=== PATIENT | male | born 1960 | race Caucasian/White ===

== ENCOUNTER 2017-03-13 12:41 | Inpatient (IN) | payer MEDICARE, MEDICAID ==
[2017-03-13 13:51] LABS: #Basophils 0.1 thou/uL (0.0-0.2); #Eosinphils 0.3 thou/uL (0.0-0.7); #Lymphocytes 1.1 thou/uL (1.20-3.40); #Monocytes 1.2 thou/uL (0.11-0.59); %Basophils 0.4 % (0.0-1.0); %Eosinophils 2.6 % (0.0-10.0); %Lymphocytes 8.1 % (21.0-51.0); %Monocytes 8.6 % (0.0-10.0); %Neutrophils 80.3 % (42.0-75.0); Hemoglobin 13.1 g/dL (14.0-18.0); Mean Corpuscular HGB CONC 31.7 g/dL (32.0-36.0); Mean Corpuscular Hemoglobin 27.3 pg (27.0-31.0); Mean Corpuscular Volume 86.2 fl (80.0-94.0); Mean Platelet Volume 6.7 fL (7.4-10.4); Platelet Count 355 thou/uL (130-400); RBC Distribution Width 15.6 % (11.5-14.5); Red Blood Cell (RBC) Count 4.78 mill/uL (4.70-6.10); White Blood Cell (WBC) Count 13.7 thou/uL (4.8-10.8)
[2017-03-13 13:51] LABS: Bilirubin Negative (Negative); Blood, Urine Negative (Negative); Clarity CLEAR (Clear); Glucose, Urine (Dipstick) Negative (Negative); Leukocyte Negative (Negative); Nitrite Negative (Negative); Protein, Urine (Dipstick) Trace mg/dL (Neg-Trace); Specific Gravity, Urine 1.009 (1.002-1.036); Urobilinogen 0.2 mg/dL (0.2-1.0)
[2017-03-13 13:57] LABS: Hemoglobin A1c 6.8 % (4.0-6.0)
[2017-03-13 14:13] LABS: ALT (SGPT) 11 U/L (8-55); AST (SGOT) 13 U/L (5-34); Albumin 3.5 g/dL (3.5-5.0); Alkaline Phosphatase 63 U/L (40-150); Anion Gap 16 mmol/L (10-20); BUN (Urea Nitrogen) 55 mg/dL (8.4-25.7); Bilirubin, Total 0.4 mg/dL (0.2-1.2); Calc. Creatinine Clearance 0 mL/min (70-130); Calcium 9.7 mg/dL (7.8-10.44); Carbon Dioxide 34 mmol/L (22-29); Chloride 91 mmol/L (98-107); Estimated GFR-MDRD 39; Globulin 4.4 g/dL (2.4-3.5); Glucose 83 mg/dL (70-105); Potassium 3.7 mmol/L (3.5-5.1); Protein, Total 7.9 g/dL (6.0-8.3); Sodium 137 mmol/L (136-145)
--- NOTE | 2017-03-13 14:57 | HP ---
DATE OF ADMISSION: 03/13/2017 PRIMARY CARE PHYSICIAN: Miriam Villafana D.O. REASON FOR ADMISSION: Right lower extremity ulceration and cellulitis. HISTORY OF PRESENT ILLNESS: Mr. Leavitt is a 57-year-old male with past medical history of alcoholism, hypertension, diabetes, dyslipidemia, chronic systolic cardiac dysfunction who resides a [facility] home was sent over for worsening of left lower extremity ulceration. Hist ory is mainly obtained from the patient and supplemented by electronic medical records and discussion with admitting ER physician, Dr. Farah. According to Mr. Leavitt, the long-term staff has been noticing that he has worsening of small ulc ers in his right leg and that is the reason he was sent here. Otherwise, he denies any other recent illnesses. He denies any pain in the leg. He denies any discharge in the leg, but he cannot really look because of obesity. He denies any fever, chills, cough, shortness of breath, chest pain, nausea , vomiting, dysuria, frequency, urgency, hematochezia, melena, diarrhea or abdominal pain. PHYSICAL EXAMINATION: VITAL SIGNS: Upon presentation to the emergency room, he was somewhat hypertensive with blood pressu re of 183/93 but was otherwise hemodynamically stable. His temperature was 99 degrees. MUSCULOSKELETAL: On examination, he was found to have significantly large area of eschar on his rose on the right leg associated with small areas of ulcerations and diffuse cellulitis extending from hi s foot all the way up to his right knee. He also was found to have big eschar on his right heel. He also has significant edema to both legs and some evidence of erythema to his left foot as well. Giv en these findings, he was given IV antibiotics and is now being admitted with presumptive diagnosis o f cellulitis and significant wound infection of the lower leg either diabetic or vascular in nature. An ultrasound of the leg done in the emergency room is negative for any DVT in the right leg. Other lacy he has evidence of leukocytosis and is hemodynamically stable. His lactic acid is 1.8. PAST MEDICAL HISTORY: 1. History of chronic alcoholism. He is abstinent for last 3 years since he has been in the long-term. 2. History of cardiopulmonary arrest requiring CPR and intubation in 02/2014. 3. 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 4. History of chronic systolic cardiomyopathy with last EF of 40%-45% in 02/2014. 5. Hypertension. 6. Dyslipidemia. 7. Diabetes mellitus type 2. PAST SURGICAL HISTORY: Intubation and bronchoscopy in 02/2014. ALLERGIES: No known medication allergies. CURRENT MEDICATIONS: As per the long-term records. 1. Arginaid packet 1 packet once a day for wound healing. 2. Vitamin C daily. 3. Nexium tablet daily. 4. Tramadol as needed. 5. Lasix 40 mg b.i.d. 6. Glipizide 5 mg daily. 7. Aspirin 325 mg daily. 8. Mucinex tablet as needed. 9. Metformin 1000 mg b.i.d. 10. Extra strength Tylenol as needed. 11. Losartan 100 mg daily. 12. Fenofibric acid 145 mg daily. 13. Carvedilol 25 mg 2 times a day. 14. Claritin as needed. 15. Hydrochlorothiazide 25 mg daily. 16. Simvastatin 40 mg daily. 17. Famotidine 20 mg b.i.d. 18. Loperamide as needed. FAMILY HISTORY: Not obtainable correctly given the patient's difficulty to remember. Otherwise, he denies anyone in his family to have a heart attack or stroke. Code status, out of hospital DNR is in the chart. SOCIAL HISTORY: He currently resides at [facility] as a prominent resident. He has history of alcohol abuse and was homeless prior to his last admission in 2013. No history of drug or tobacc o abuse. REVIEW OF SYSTEMS: The following complete review of systems was negative, unless otherwise mentioned in the HPI or below: Constitutional: Weight loss or gain, ability to conduct usual activities. Skin: Rash, itching. Eyes: Double vision, pain. ENT/Mouth: Nose bleeding, neck stiffness, pain, tenderness. Cardiovascular: Palpitations, dyspnea on exertion, orthopnea. Respiratory: Shortness of breath, wheezing, cough, hemoptysis, fever or night sweats. Gastrointestinal: Poor appetite, abdominal pain, heartburn, nausea, vomiting, constipation, or diarr hea. Genitourinary: Urgency, frequency, dysuria, nocturia. Musculoskeletal: Pain, swelling. Neurologic/Psychiatric: Anxiety, depression. Allergy/Immunologic: Skin rash, bleeding tendency. It is negative except for those mentioned in the history and physical. LABORATORY DATA AND IMAGING DATA: On examination, CBC shows WBCs at 13.7 with 80% neutrophils, hemog lobin 13.1, hematocrit 41.2, and platelet count of 355. Serum chemistry: Chloride 91, bicarbonate 3 4, BUN 55, creatinine 1.81, hemoglobin A1c is 6.8, blood sugar 83, lactic acid normal at 1.8. Liver enzymes within normal limits. Urinalysis is unremarkable. X-ray of the leg and foot are pending at this time. PHYSICAL EXAMINATION: VITAL SIGNS: Most recent vital signs include blood pressure 173/92, pulse of 89, respirations 30, sa turating 94% on room air. GENERAL: No acute distress, awake, alert, and oriented x3. He appears well nourished and well kempt . Awake, alert, and oriented x3. HEENT: Mucous membrane is moist and pink. No oropharyngeal exudate or erythema. Head is normocepha lic, atraumatic. Pupils are equal and reactive to light and accommodation. Extraocular movements in tact. NECK: Supple without any lymphadenopathy, JVD or bruit. CHEST: Clear to auscultation without any wheezing, rales, or rhonchi. Rate and rhythm is regular wi thout any murmur, rubs or gallops. ABDOMEN: Soft, nontender, nondistended with positive bowel sounds. EXTREMITIES: His left lower extremity has erythema and pitting edema extending from his foot to his mid rose. His right lower extremity has diffuse erythema and edema extending from his foot to almost up to the right knee. He has diffuse area of big eschar measuring at least 10-15 cm on the right sh in. Also, surrounded by some small shallow ulcers throughout the right anterior leg. He also has es prem to his right heel. Otherwise no rashes or bruises. NEUROLOGIC: Examination is nonfocal. PSYCHIATRIC: Normal affect. SKIN: As above. IMPRESSION AND PLAN: 1. Right leg ulcer. Either it is diabetic kidney injury versus vascular. He will be started on IV antibiotics. He would need extensive debridement. We will consult Wound Care as well as General Nuzhat catalino for the same. We will obtain x-ray of his leg and his foot on the right side to rule out osteom yelitis. We will also obtain Dopplers on both legs to rule out vascular causes. He will be admitted to medical service at this time as he is hemodynamically stable. He will be treated for possible se psis along with IV fluids and IV antibiotics. Blood cultures have been sent and we will follow the r esults. Wound cultures have also been obtained in the ER and we will follow the results as well. 2. Uncontrolled hypertension. We will resume his home medications with beta blockers at this time. Avoid diuretics and ÁNGEL and ARB due to acute kidney insufficiency. Monitor and add p.r.n. antihyper tensives. 3. Acute kidney insufficiency. The patient's baseline creatinine seems to be within normal range. We will be resuscitate with IV fluids and monitor his renal function. Avoid any nephrotoxic medicati ons and iodine dyes. 4. Diabetes mellitus. This patient needs to be on insulin. At this time, it seems like he is only controlled with oral hypoglycemics. He will be treated with insulin sliding scale in the hospital an d we will add insulin short and long-acting at the time of discharge. At this time, I do not know if the patient will be n.p.o. in preparation for any surgical debridement, so we will hold off on oral hypoglycemics and long-acting insulins. 2. History of cardiac arrest. 3. CODE STATUS: DO NOT RESUSCITATE as mentioned in the out of hospital DNR form. 4. Dyslipidemia, resume his statin. 5. History of systolic cardiac dysfunction. He appears euvolemic at this time. 6. Deep venous thrombosis and gastrointestinal prophylaxis. 7. Add p.r.n. medication order and supportive care. DISPOSITION: The patient will be admitted to medical floor for nonhealing lower extremity cultures a nd rule out osteomyelitis with possible sepsis. Further management will depend upon his clinical cou rse. Estimated length of stay at this time is at least 2-3 midnights.
[2017-03-13] MEDS ORDERED: Piperacillin/Tazobactam 4.5 GM in Sodium Chloride 0.9% 100 ML IVPB SCH (15:00)
[2017-03-13] MEDS ORDERED: Vancomycin HCl 1.75 GM in Sodium Chloride 0.9% 500 ML IVPB SCH (15:00)
--- NOTE | 2017-03-13 15:29 | RAD ---
2 VIEWS RIGHT TIBIA AND FIBULA: Date: 03/13/17 HISTORY: Osteomyelitis and pain. FINDINGS: AP and lateral views of right tibia and fibula demonstrate no evidence of right tibial or fibular fra ctures, subluxations, or bony lesions. IMPRESSION: Normal 2 views right tibia and fibula. POS: [facility]
--- NOTE | 2017-03-13 15:29 | RAD ---
3 VIEWS RIGHT FOOT: Date: 03/13/17 HISTORY: Right foot pain. Wound which is foul-smelling. FINDINGS: AP, lateral, and oblique views of right foot obtained. FINDINGS: There is soft tissue swelling over the dorsal aspect of the right foot. No evidence of right foot fractures, subluxations, or bony lesions seen. IMPRESSION: Dorsal right foot swelling with no evidence of acute fractures or bony lesions. POS: [facility]
[2017-03-13] MEDS ORDERED: Calcium Carbonate 500 MG ChewTAB PO PRN (16:50)
[2017-03-13] MEDS ORDERED: Diabetic Tussin 200 MG/10 ML UDCUP PO PRN (16:50)
[2017-03-13] MEDS ORDERED: Nitroglycerin 0.4 MG TAB (25 Tab Bottle) SL PRN (16:50)
[2017-03-13] MEDS ORDERED: Senokot 8.6 MG TAB PO PRN (16:50)
[2017-03-13] MEDS ORDERED: Loratadine 10 MG TAB PO PRN (16:50)
[2017-03-13] MEDS ORDERED: VANCOMYCIN HCL IVPB SCH (16:50)
[2017-03-13] MEDS ORDERED: HumaLOG 300 UNITS/3 ML VIAL SC PRN (16:50)
[2017-03-13] MEDS ORDERED: cloNIDine 0.1 MG TAB PO PRN (16:50)
[2017-03-13] MEDS ORDERED: Benzonatate 100 MG CAP PO PRN (16:50)
[2017-03-13] MEDS ORDERED: Bisacodyl 5 MG TAB PO PRN (16:50)
[2017-03-13] MEDS ORDERED: traMADol HCl 50 MG TAB PO PRN (16:50)
[2017-03-13] MEDS ORDERED: Ondansetron HCl/PF 4 MG/2 ML Vial IVP PRN (16:50)
[2017-03-13] MEDS ORDERED: Lorazepam 1 MG TAB PO PRN (16:50)
[2017-03-13] MEDS ORDERED: Mag-Al 1200 mg/1200 mg/30 ML UDCUP PO PRN (16:50)
[2017-03-13] MEDS ORDERED: Dextrose 5% in Water 1,000 ML IV PRN (16:50)
[2017-03-13] MEDS ORDERED: Dextrose 50% Abboject 50 ML SYRINGE SLOW IVP PRN (16:50)
[2017-03-13] MEDS ORDERED: hydrALAZINE 20 MG/ML VIAL SLOW IVP PRN (16:50)
[2017-03-13] MEDS ORDERED: Acetaminophen 325 MG TAB PO PRN (16:50)
[2017-03-13] MEDS ORDERED: Piperacillin/Tazobactam 3.375 GM in Sodium Chloride 0.9% 100 ML IVPB SCH (18:00)
[2017-03-13] MEDS: Sodium Chloride 0.9% 1,000 ML IV SCH (18:43)
[2017-03-13] MEDS: Carvedilol 25 MG TAB PO SCH (18:45)
--- NOTE | 2017-03-13 20:26 | ULT ---
RIGHT LOWER EXTREMITY ARTERIAL VASCULAR DUPLEX WITH COLOR AND SPECTRAL DOPPLER IMAGING: History: 57-year-old male with vascular ulcer. FINDINGS: There is a minimally enlarged left lymph node in the right groin, nonspecific. Exam performed from groin to ankle. There is monophasic flow throughout the right lower extremity except for the profunda femoral artery where there was triphasic flow. Dorsalis pedis flow was not demonstrated. No evidence for significant focal abnormal high velocities. IMPRESSION: Essential monophasic flow throughout the right lower extremity arterial tree, evidence for generalize d peripheral vascular disease. No significant focal high velocity. Consider follow up abdominal and bilateral lower extremity CT angiogram for further assessment in thi s regard. Minimally enlarged nonspecific right groin lymph node. POS: [facility]
[2017-03-13] MEDS: Famotidine 20 MG TAB PO SCH (21:34)
[2017-03-13] MEDS: Simvastatin 40 MG TAB PO SCH (21:34)
[2017-03-13] MEDS: Piperacillin/Tazobactam 2.25 GM in Sodium Chloride 0.9% 100 ML IVPB SCH (21:35)
[2017-03-14] MEDS: Piperacillin/Tazobactam 2.25 GM in Sodium Chloride 0.9% 100 ML IVPB SCH ×4 (05:00→20:35)
[2017-03-14] MEDS: Sodium Chloride 0.9% 1,000 ML IV SCH ×2 (05:38→22:00)
[2017-03-14 06:25] LABS: #Eosinphils 0.2 thou/uL (0.0-0.7); #Neutrophils 11.3 thou/uL (1.40-6.50); %Eosinophils 1.7 % (0.0-10.0); %Lymphocytes 7.4 % (21.0-51.0); %Monocytes 7.1 % (0.0-10.0); %Neutrophils 83.8 % (42.0-75.0); Anion Gap 16 mmol/L (10-20); BUN (Urea Nitrogen) 49 mg/dL (8.4-25.7); Calc. Creatinine Clearance 83 mL/min (70-130); Calcium 9.6 mg/dL (7.8-10.44); Carbon Dioxide 29 mmol/L (22-29); Chloride 97 mmol/L (98-107); Estimated GFR-MDRD 49; Glucose 124 mg/dL (70-105); Hemoglobin 11.8 g/dL (14.0-18.0); Mean Corpuscular HGB CONC 31.3 g/dL (32.0-36.0); Mean Corpuscular Hemoglobin 27.1 pg (27.0-31.0); Mean Corpuscular Volume 86.5 fl (80.0-94.0); Mean Platelet Volume 7.9 fL (7.4-10.4); Platelet Count 334 thou/uL (130-400); Potassium 3.4 mmol/L (3.5-5.1); RBC Distribution Width 15.7 % (11.5-14.5); Red Blood Cell (RBC) Count 4.36 mill/uL (4.70-6.10); Sodium 139 mmol/L (136-145); White Blood Cell (WBC) Count 13.5 thou/uL (4.8-10.8)
[2017-03-14] MEDS: Enoxaparin Sodium 40 MG/0.4 ML SYRINGE SC SCH (07:35)
[2017-03-14] MEDS: Fenofibrate Nanocrystallized 145 MG TAB PO SCH (07:35)
[2017-03-14] MEDS: Famotidine 20 MG TAB PO SCH ×2 (07:35→20:35)
[2017-03-14] MEDS: Carvedilol 25 MG TAB PO SCH ×2 (07:36→16:51)
[2017-03-14] MEDS: Aspirin 325 mg Enteric Coated Tablet PO SCH (07:36)
[2017-03-14] MEDS ORDERED: Potassium Chloride 20 MEQ TAB PO SCH (08:00)
[2017-03-14 09:06] VITALS: BMI 40.6
--- NOTE | 2017-03-14 13:07 | PDOC.PN ---
- Subjective Encounter Start Date: 03/14/17 Encounter Start Time: 08:30 -: old records requested/rev Patient seen and examined. No new complaints. No overnight events - Objective MAR Reviewed: Yes Vital Signs & Weight: Vital Signs (12 hours) Temp Pulse Resp BP Pulse Ox 03/14/17 12:00 95 03/14/17 11:29 98.9 F 92 20 166/93 H 90 L 03/14/17 08:02 99.7 F H 94 18 131/72 90 L 03/14/17 08:00 99.7 F H 94 18 95 03/14/17 04:47 97.6 F 88 127/75 Weight Admit Weight 237 lb Weight 237 lb I&O: 03/13/17 03/14/17 03/15/17 06:59 06:59 06:59 Intake Total 2009 240 Output Total 1075 Balance 935 240 Result Diagrams: 03/14/17 04:23 03/14/17 04:23 Additional Labs: Accuchecks 03/14/17 03/13/17 03/13/17 11:21 20:22 18:41 POC Glucose 224 H 140 H 109 EKG Reviewed by me: Yes Phys Exam - Physical Examination Constitutional: NAD HEENT: PERRLA, moist MMs, sclera anicteric Neck: no JVD, supple Respiratory: no wheezing, no rales, no rhonchi Cardiovascular: RRR, no significant murmur, no rub Gastrointestinal: soft, non-tender, no distention, positive bowel sounds Musculoskeletal: no edema, pulses present foul smelling wound with ulcer Neurological: non-focal Lymphatic: no nodes Psychiatric: normal affect Skin: no rash, normal turgor Dx/Plan (1) Acute kidney failure Status: Acute (2) Cellulitis of right leg Code(s): L03.115 - CELLULITIS OF RIGHT LOWER LIMB Status: Acute (3) Hypokalemia Code(s): E87.6 - HYPOKALEMIA Status: Acute (4) Sepsis with acute organ dysfunction Code(s): A41.9 - SEPSIS, UNSPECIFIED ORGANISM; R65.20 - SEVERE SEPSIS WITHOUT SEPTIC SHOCK Status: Acute (5) Ulcer of right lower leg Code(s): L97.919 - NON-PRS CHRONIC ULC UNSP PRT OF R LOW LEG W UNSP SEVERITY Status: Acute (6) Anemia, normocytic normochromic Code(s): D64.9 - ANEMIA, UNSPECIFIED Status: Chronic (7) Chronic systolic heart failure Code(s): I50.22 - CHRONIC SYSTOLIC (CONGESTIVE) HEART FAILURE Status: Chronic (8) Diabetes type 2, controlled Code(s): E11.9 - TYPE 2 DIABETES MELLITUS WITHOUT COMPLICATIONS Status: Chronic (9) Dyslipidemia Code(s): E78.5 - HYPERLIPIDEMIA, UNSPECIFIED Status: Chronic (10) Hypertension Code(s): I10 - ESSENTIAL (PRIMARY) HYPERTENSION Status: Chronic (11) Morbid obesity with BMI of 40.0-44.9, adult Code(s): E66.01 - MORBID (SEVERE) OBESITY DUE TO EXCESS CALORIES; Z68.41 - BODY MASS INDEX (BMI) 40.0-44.9, ADULT Status: Chronic - Plan cont current plan of care, continue antibiotics, social services coordinator * continue vancomycin and zosyn * wound care * surgeon consulted, pt may need surgical debridement * medication reviewed as below * symptomatic treatment. * selected home medication Review of Systems - Review of Systems Constitutional: negative: fever, chills, sweats, weakness, malaise, other Eyes: negative: Pain, Vision Change, Conjunctivae Inflammation, Eyelid Inflammation, Redness, Other ENT: negative: Ear Pain, Ear Discharge, Nose Pain, Nose Discharge, Nose Congestion, Mouth Pain, Mouth Swelling, Throat Pain, Throat Swelling, Other Respiratory: negative: Cough, Dry, Shortness of Breath, Hemoptysis, SOB with Excertion, Pleuritic Pain, Sputum, Wheezing Cardiovascular: negative: chest pain, palpitations, orthopnea, paroxysmal nocturnal dyspnea, edema, light headedness, other Gastrointestinal: negative: Nausea, Vomiting, Abdominal Pain, Diarrhea, Constipation, Melena, Hematochezia, Other Genitourinary: negative: Dysuria, Frequency, Incontinence, Hematuria, Retention , Other Musculoskeletal: Leg Pain. negative: Neck Pain, Shoulder Pain, Arm Pain, Back Pain, Hand Pain, Foot Pain, Other Skin: negative: Rash, Lesions, Jeff, Bruising, Other - Medications/Allergies Allergies/Adverse Reactions: Allergies Allergy/AdvReac Type Severity Reaction Status Date / Time No Allergy Information Allergy Verified 01/12/14 23:25 Available Medications: Current Medications Acetaminophen (Tylenol) 650 mg PO Q4H PRN PRN Reason: Headache/Fever or Pain Last Admin: 03/13/17 18:45 Dose: 650 mg Hydrocodone Bitart/Acetaminophen ([place] 5/325) 1 tab PO Q4H PRN PRN Reason: Moderate Pain (4-6) Al Hydroxide/Mg Hydroxide (Maalox) 30 ml PO Q6H PRN PRN Reason: Heartburn or Indigestion Aspirin (Ecotrin) 325 mg PO DAILY [facility] Last Admin: 03/14/17 07:36 Dose: 325 mg Benzonatate (Tessalon) 100 mg PO Q4H PRN PRN Reason: Cough Bisacodyl (Dulcolax) 10 mg PO DAILYPRN PRN PRN Reason: Constipation Calcium Carbonate (Tums) 1,000 mg PO Q4H PRN PRN Reason: Heartburn or Indigestion [facility] Admin: 03/14/17 07:36 Dose: 25 mg Clonidine (Catapres) 0.1 mg PO Q4H PRN PRN Reason: Systolic BP > 160 Dextrose/Water (Dextrose 50%) 25 gm SLOW IVP PRN PRN PRN Reason: Hypoglycemia Enoxaparin Sodium (Lovenox) 40 mg SC 0900 [facility] Last Admin: 03/14/17 07:35 Dose: 40 mg Famotidine (Pepcid) 20 mg PO BID [facility] Last Admin: 03/14/17 07:35 Dose: 20 mg Fenofibrate (Tricor) 145 mg PO DAILY [facility] Last Admin: 03/14/17 07:35 Dose: 145 mg Glucagon (Glucagon) 1 mg IM PRN PRN PRN Reason: Hypoglycemia Guaifenesin (Robitussin Sf) 200 mg PO Q4H PRN PRN Reason: Cough Hydralazine HCl (Apresoline) 10 mg SLOW IVP Q4H PRN PRN Reason: Systolic BP > 170 Dextrose/Water (D5w) 1,000 mls @ 0 mls/hr IV .Q0M PRN; As Directed PRN Reason: Hypoglycemia Sodium Chloride (Normal Saline 0.9%) 1,000 mls @ 75 mls/hr IV .[id number] [facility] Last Admin: 03/14/17 05:38 Dose: Not Given Piperacillin Sod/Tazobactam (Sod 2.25 gm/ Sodium Chloride) 100 mls @ 200 mls/ hr IVPB 0400,1000,1600,2200 [facility] Last Admin: 03/14/17 09:41 Dose: 100 mls Vancomycin HCl 1.5 gm/ Sodium (Chloride) 300 mls @ 200 mls/hr IVPB Q24HR@1700 [facility] Sodium Chloride (Normal Saline 0.9%) 1,000 mls @ 75 mls/hr IV .[id number] [facility] Insulin Human Lispro (Humalog) 0 units SC .AGGRESSIVE SLIDING PRN PRN Reason: Aggressive Correctional Scale Insulin Human Lispro (Humalog) 0 units SC .BEDTIME SLIDING SC PRN PRN Reason: Bedtime Correctional Scale Loratadine (Claritin) 10 mg PO DAILYPRN PRN PRN Reason: Sinus Symptoms Lorazepam (Ativan) 1 mg PO Q4H PRN PRN Reason: Anxiety/Agitation Miscellaneous Medication (Pharmacy To Dose) 1 each IVPB PRN PRN PRN Reason: Pharmacy to dose Nitroglycerin (Nitrostat) 0.4 mg SL Q5MIN PRN PRN Reason: Chest Pain Ondansetron HCl (Zofran) 4 mg IVP Q6H PRN PRN Reason: Nausea/Vomiting Senna (Senokot) 2 tab PO HSPRN PRN PRN Reason: Constipation Simvastatin (Zocor) 40 mg PO HS [facility] Last Admin: 03/13/17 21:34 Dose: 40 mg Tramadol HCl (Ultram) 50 mg PO Q4H PRN PRN Reason: Moderate Pain (4-6)
--- NOTE | 2017-03-14 13:30 | CON ---
DATE OF CONSULTATION: 03/14/2017 HISTORY OF PRESENT ILLNESS: Delon Leavitt is a 57-year-old male longterm resident presents to the hospital, admitted 03/13/2017 for worsening right leg infection. He reports for the past month a nd a half he has open wounds of his right ankle and leg. He has a large eschar with open wound, foul smelling with cellulitis right leg around the ankle area. Plan is to go to the operating room tomco darrell after n.p.o. status and sharply debride these and make further assessment of the wound. He has a remote history of smoking, but not recently. ALLERGIES: None. MEDICATIONS: Tylenol, tramadol, lisinopril, Thiamine, simvastatin, carvedilol 12.5 mg b.i.d., metfor min 500 b.i.d. PAST MEDICAL HISTORY: Hypertension and diabetes. Patient reports 12/[address] Eliza Paz saw him. Echocardiogram 12/2013, 45-50% EF, mild MR and TR. At that time, he presented wit h a cardiopulmonary arrest. Dr. Alcala saw him. Although he had a cardiopulmonary arrest there was n o mention of myocardial infarction. Dr. Paz saw him on hospitalization 12/2013. There was some q uestion whether it was a true cardiac arrest or a seizure episode for alcohol withdrawal and hyperten naomi. PAST SURGICAL HISTORY: Noncontributory. PHYSICAL EXAMINATION: VITAL SIGNS: Height 5 feet 4 inches, 237 pounds, 40 BMI, 98.9, 92, 166/93. LUNGS: Clear to auscultation. CARDIAC: Regular rate and rhythm without murmur or gallop. ABDOMEN: Soft, obese, nontender. EXTREMITIES: Palpable femoral pulses bilaterally. Right ankle is edematous, right leg cellulitis fo ot to below the knee. There is a large eschar in the right anterior lateral leg above the ankle and another one at the ankle level. He has multiple smaller eschars over the anteromedial leg more proxi caty of smaller size. LABORATORY: White count 13, hemoglobin 11, BUN 49, creatinine 1.47. ASSESSMENT AND PLAN: Cellulitis, necrotic wounds with granulation and eschar right leg. Will plan s harp debridement in the morning after n.p.o. status. Risks and benefits of the operation explained, open wounds will result and wound care will be necessary.
[2017-03-14] MEDS: HumaLOG 300 UNITS/3 ML VIAL SC PRN (16:18)
[2017-03-14] MEDS: Vancomycin HCl 1.5 GM in Sodium Chloride 0.9% 250 ML 300 ML IVPB SCH (16:51)
[2017-03-14] MEDS: Simvastatin 40 MG TAB PO SCH (20:35)
[2017-03-14] MEDS: HYDROcodone/Acetaminophen 5/325 mg Tablet PO PRN (20:35)
[2017-03-15] MEDS: Piperacillin/Tazobactam 2.25 GM in Sodium Chloride 0.9% 100 ML IVPB SCH (04:09)
[2017-03-15] MEDS: Sodium Chloride 0.9% 1,000 ML IV SCH ×4 (04:16→22:45)
[2017-03-15] MEDS: Aspirin 325 mg Enteric Coated Tablet PO SCH (07:32)
[2017-03-15] MEDS: Carvedilol 25 MG TAB PO SCH ×2 (07:32→16:59)
[2017-03-15] MEDS: Famotidine 20 MG TAB PO SCH ×2 (07:33→20:49)
[2017-03-15] MEDS: Enoxaparin Sodium 40 MG/0.4 ML SYRINGE SC SCH (07:33)
[2017-03-15] MEDS: Fenofibrate Nanocrystallized 145 MG TAB PO SCH (07:33)
--- NOTE | 2017-03-15 11:34 | PDOC.PN ---
- Subjective Encounter Start Date: 03/15/17 Encounter Start Time: 09:00 Patient seen and examined. No new complaints. No overnight events - Objective MAR Reviewed: Yes Vital Signs & Weight: Vital Signs (12 hours) Temp Pulse Resp BP Pulse Ox 03/15/17 08:00 99.2 F 86 20 174/90 H 97 03/15/17 03:18 98.2 F Weight Admit Weight 237 lb Weight 237 lb I&O: 03/14/17 03/15/17 03/16/17 06:59 06:59 06:59 Intake Total 2009 1289 Output Total 1074 550 Balance 935 740 Result Diagrams: 03/14/17 04:23 03/14/17 04:23 Additional Labs: Accuchecks 03/15/17 03/14/17 03/14/17 04:44 19:54 16:06 POC Glucose 192 H 241 H 236 H 03/14/17 11:21 POC Glucose 224 H Phys Exam - Physical Examination Constitutional: NAD HEENT: PERRLA, moist MMs, sclera anicteric Neck: no JVD, supple Respiratory: no wheezing, no rales, no rhonchi Cardiovascular: RRR, no significant murmur, no rub Gastrointestinal: soft, non-tender, no distention, positive bowel sounds Musculoskeletal: no edema, pulses present necrotic foul smelling ulcer right leg Neurological: non-focal, normal sensation Psychiatric: normal affect Skin: no rash, normal turgor Dx/Plan (1) Acute kidney failure Status: Acute (2) Cellulitis of right leg Code(s): L03.115 - CELLULITIS OF RIGHT LOWER LIMB Status: Acute (3) Hypokalemia Code(s): E87.6 - HYPOKALEMIA Status: Acute (4) Sepsis with acute organ dysfunction Code(s): A41.9 - SEPSIS, UNSPECIFIED ORGANISM; R65.20 - SEVERE SEPSIS WITHOUT SEPTIC SHOCK Status: Acute (5) Ulcer of right lower leg Code(s): L97.919 - NON-PRS CHRONIC ULC UNSP PRT OF R LOW LEG W UNSP SEVERITY Status: Acute (6) Anemia, normocytic normochromic Code(s): D64.9 - ANEMIA, UNSPECIFIED Status: Chronic (7) Chronic systolic heart failure Code(s): I50.22 - CHRONIC SYSTOLIC (CONGESTIVE) HEART FAILURE Status: Chronic (8) Diabetes type 2, controlled Code(s): E11.9 - TYPE 2 DIABETES MELLITUS WITHOUT COMPLICATIONS Status: Chronic (9) Dyslipidemia Code(s): E78.5 - HYPERLIPIDEMIA, UNSPECIFIED Status: Chronic (10) Hypertension Code(s): I10 - ESSENTIAL (PRIMARY) HYPERTENSION Status: Chronic (11) Morbid obesity with BMI of 40.0-44.9, adult Code(s): E66.01 - MORBID (SEVERE) OBESITY DUE TO EXCESS CALORIES; Z68.41 - BODY MASS INDEX (BMI) 40.0-44.9, ADULT Status: Chronic - Plan cont current plan of care, continue antibiotics * medication reviewed as below * symptomatic treatment * today plan for surgical debridement * will DC Zosyn and start meropenam based on culture result * continue vancomycin * wound care. Review of Systems - Review of Systems ENT: negative: Ear Pain, Ear Discharge, Nose Pain, Nose Discharge, Nose Congestion, Mouth Pain, Mouth Swelling, Throat Pain, Throat Swelling, Other Respiratory: negative: Cough, Dry, Shortness of Breath, Hemoptysis, SOB with Excertion, Pleuritic Pain, Sputum, Wheezing Cardiovascular: negative: chest pain, palpitations, orthopnea, paroxysmal nocturnal dyspnea, edema, light headedness, other Gastrointestinal: negative: Nausea, Vomiting, Abdominal Pain, Diarrhea, Constipation, Melena, Hematochezia, Other Genitourinary: negative: Dysuria, Frequency, Incontinence, Hematuria, Retention , Other Musculoskeletal: negative: Neck Pain, Shoulder Pain, Arm Pain, Back Pain, Hand Pain, Leg Pain, Foot Pain, Other Skin: negative: Rash, Lesions, Jeff, Bruising, Other - Medications/Allergies Allergies/Adverse Reactions: Allergies Allergy/AdvReac Type Severity Reaction Status Date / Time No Allergy Information Allergy Verified 01/12/14 23:25 Available Medications: Current Medications Acetaminophen (Tylenol) 650 mg PO Q4H PRN PRN Reason: Headache/Fever or Pain Last Admin: 03/13/17 18:45 Dose: 650 mg Hydrocodone Bitart/Acetaminophen ([place] 5/325) 1 tab PO Q4H PRN PRN Reason: Moderate Pain (4-6) Last Admin: 03/14/17 20:35 Dose: 1 tab Al Hydroxide/Mg Hydroxide (Maalox) 30 ml PO Q6H PRN PRN Reason: Heartburn or Indigestion Aspirin (Ecotrin) 325 mg PO DAILY [facility] Last Admin: 03/15/17 07:32 Dose: Not Given Benzonatate (Tessalon) 100 mg PO Q4H PRN PRN Reason: Cough Bisacodyl (Dulcolax) 10 mg PO DAILYPRN PRN PRN Reason: Constipation Calcium Carbonate (Tums) 1,000 mg PO Q4H PRN PRN Reason: Heartburn or Indigestion Carvedilol (Coreg) 25 mg PO BID-[facility] Last Admin: 03/15/17 07:32 Dose: Not Given Clonidine (Catapres) 0.1 mg PO Q4H PRN PRN Reason: Systolic BP > 160 Dextrose/Water (Dextrose 50%) 25 gm SLOW IVP PRN PRN PRN Reason: Hypoglycemia Enoxaparin Sodium (Lovenox) 40 mg SC 0900 [facility] Last Admin: 03/15/17 07:33 Dose: Not Given Famotidine (Pepcid) 20 mg PO BID [facility] Last Admin: 03/15/17 07:33 Dose: Not Given Fenofibrate (Tricor) 145 mg PO DAILY [facility] Last Admin: 03/15/17 07:33 Dose: Not Given Glucagon (Glucagon) 1 mg IM PRN PRN PRN Reason: Hypoglycemia Guaifenesin (Robitussin Sf) 200 mg PO Q4H PRN PRN Reason: Cough Hydralazine HCl (Apresoline) 10 mg SLOW IVP Q4H PRN PRN Reason: Systolic BP > 170 Dextrose/Water (D5w) 1,000 mls @ 0 mls/hr IV .Q0M PRN; As Directed PRN Reason: Hypoglycemia Sodium Chloride (Normal Saline 0.9%) 1,000 mls @ 75 mls/hr IV .[id number] [facility] Last Admin: 03/15/17 04:16 Dose: 1,000 mls Vancomycin HCl 1.5 gm/ Sodium (Chloride) 300 mls @ 200 mls/hr IVPB Q24HR@1700 [facility] Last Admin: 03/14/17 16:51 Dose: 300 mls Sodium Chloride (Normal Saline 0.9%) 1,000 mls @ 75 mls/hr IV .[id number] [facility] Last Admin: 03/15/17 08:26 Dose: Not Given Meropenem 1 gm/ Device 50 mls @ 100 mls/hr IVPB Q8HR [facility] Meropenem 1 gm/ Sterile Water 20 mls @ 240 mls/hr SLOW IVP Q8HR [facility] PRN Reason: As Directed Insulin Human Lispro (Humalog) 0 units SC .AGGRESSIVE SLIDING PRN PRN Reason: Aggressive Correctional Scale Last Admin: 03/14/17 16:18 Dose: 6 unit Insulin Human Lispro (Humalog) 0 units SC .BEDTIME SLIDING SC PRN PRN Reason: Bedtime Correctional Scale Loratadine (Claritin) 10 mg PO DAILYPRN PRN PRN Reason: Sinus Symptoms Lorazepam (Ativan) 1 mg PO Q4H PRN PRN Reason: Anxiety/Agitation Miscellaneous Medication (Pharmacy To Dose) 1 each IVPB PRN PRN PRN Reason: Pharmacy to dose Nitroglycerin (Nitrostat) 0.4 mg SL Q5MIN PRN PRN Reason: Chest Pain Ondansetron HCl (Zofran) 4 mg IVP Q6H PRN PRN Reason: Nausea/Vomiting Senna (Senokot) 2 tab PO HSPRN PRN PRN Reason: Constipation Simvastatin (Zocor) 40 mg PO HS [facility] Last Admin: 03/14/17 20:35 Dose: 40 mg Tramadol HCl (Ultram) 50 mg PO Q4H PRN PRN Reason: Moderate Pain (4-6)
[2017-03-15] MEDS ORDERED: MEROPENEM 1 GM/50 ML 1 GM in Premix Bag 1 BAG IVPB SCH (14:00)
[2017-03-15] MEDS ORDERED: Meropenem 1 GM in Sodium Chloride 0.9% 100 ML IVPB SCH (14:00)
[2017-03-15] MEDS: Meropenem 1 GM in Sterile Water 20 ML SLOW IVP SCH ×2 (14:18→20:50)
[2017-03-15] MEDS ORDERED: Lidocaine 1% PF 5 ML VIAL ONE (16:38)
[2017-03-15] MEDS ORDERED: Ondansetron HCl/PF 4 MG/2 ML Vial ONE (16:38)
[2017-03-15] MEDS ORDERED: Propofol 200 MG/20 ML VIAL ONE (16:38)
[2017-03-15] MEDS: Vancomycin HCl 1.5 GM in Sodium Chloride 0.9% 250 ML 300 ML IVPB SCH (16:59)
[2017-03-15] MEDS ORDERED: Fentanyl 100 MCG/2 ML VIAL ONE (17:36)
[2017-03-15] MEDS ORDERED: Midazolam HCl 2 mg/2 ml Vial ONE (17:36)
[2017-03-15] MEDS ORDERED: traMADol HCl 50 MG TAB PO PRN (18:20)
[2017-03-15] MEDS ORDERED: Acetaminophen 500 MG TAB PO PRN (18:20)
[2017-03-15] MEDS: Simvastatin 40 MG TAB PO SCH (20:49)
[2017-03-15] MEDS: traMADol HCl 50 MG TAB PO PRN (20:49)
[2017-03-15] MEDS: HYDROcodone/Acetaminophen 5/325 mg Tablet PO PRN (23:31)
[2017-03-16] MEDS: Sodium Chloride 0.9% 1,000 ML IV SCH (02:45)
[2017-03-16 04:49] LABS: #Basophils 0.1 thou/uL (0.0-0.2); #Eosinphils 0.4 thou/uL (0.0-0.7); #Lymphocytes 1.3 thou/uL (1.20-3.40); #Monocytes 1.3 thou/uL (0.11-0.59); #Neutrophils 14.8 thou/uL (1.40-6.50); %Basophils 0.4 % (0.0-1.0); %Eosinophils 2.5 % (0.0-10.0); %Lymphocytes 7.1 % (21.0-51.0); %Monocytes 7.1 % (0.0-10.0); %Neutrophils 82.9 % (42.0-75.0); Hemoglobin 11.5 g/dL (14.0-18.0); Mean Corpuscular HGB CONC 31.4 g/dL (32.0-36.0); Mean Corpuscular Hemoglobin 27.4 pg (27.0-31.0); Mean Corpuscular Volume 87.2 fl (80.0-94.0); Mean Platelet Volume 6.6 fL (7.4-10.4); Platelet Count 358 thou/uL (130-400); RBC Distribution Width 15.4 % (11.5-14.5); Red Blood Cell (RBC) Count 4.21 mill/uL (4.70-6.10); White Blood Cell (WBC) Count 17.9 thou/uL (4.8-10.8)
[2017-03-16 04:51] LABS: ALT (SGPT) 15 U/L (8-55); AST (SGOT) 17 U/L (5-34); Albumin 3.1 g/dL (3.5-5.0); Alkaline Phosphatase 53 U/L (40-150); Anion Gap 13 mmol/L (10-20); BUN (Urea Nitrogen) 19 mg/dL (8.4-25.7); Bilirubin, Total 0.4 mg/dL (0.2-1.2); CRP (Inflammatory) 9.89 mg/dL (= or < 0.5); Calc. Creatinine Clearance 129 mL/min (70-130); Calcium 9.4 mg/dL (7.8-10.44); Carbon Dioxide 30 mmol/L (22-29); Chloride 102 mmol/L (98-107); Estimated GFR-MDRD 81; Glucose 147 mg/dL (70-105); Magnesium 1.6 mg/dL (1.6-2.6); Potassium 3.7 mmol/L (3.5-5.1); Protein, Total 7.1 g/dL (6.0-8.3); Sodium 141 mmol/L (136-145)
[2017-03-16] MEDS: traMADol HCl 50 MG TAB PO PRN (04:52)
[2017-03-16] MEDS: Meropenem 1 GM in Sterile Water 20 ML SLOW IVP SCH ×3 (04:52→22:33)
--- NOTE | 2017-03-16 06:18 | OP ---
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 PROCEDURES: Sharp debridement excisional sharp debridement of eschar, subcutaneous tissue. Large wo und anterior lateral leg above the ankle exposing tibialis anterior tendon area approximately 15 x 15 cm. Other foci gangrenous tissue more superficial debrided purulent material beneath the larger wou nd, sent for culture and sensitivity. SURGEON: Dr. Panchito Galeano. ANESTHESIA: General. PROCEDURE IN DETAIL: Patient was taken to the operating room, where under general anesthesia, the [facility] lower extremity was prepared with ChloraPrep, draped in routine fashion. An eschar excised as me ntioned and described. There was purulent material beneath the anterior lateral of right leg eschar. Wound irrigated, wet-to-dry dressings applied until wound VAC will be applied tomorrow. Overall, p rognosis of leg is poor. He is at risk for amputation.
[2017-03-16] MEDS: Fenofibrate Nanocrystallized 145 MG TAB PO SCH (07:51)
[2017-03-16] MEDS: Aspirin 325 mg Enteric Coated Tablet PO SCH (07:51)
[2017-03-16] MEDS: Enoxaparin Sodium 40 MG/0.4 ML SYRINGE SC SCH (07:51)
[2017-03-16] MEDS: Carvedilol 25 MG TAB PO SCH ×2 (07:51→17:19)
[2017-03-16] MEDS: HYDROcodone/Acetaminophen 5/325 mg Tablet PO PRN ×2 (07:56→20:06)
[2017-03-16] MEDS: Famotidine 20 MG TAB PO SCH ×2 (07:57→20:03)
--- NOTE | 2017-03-16 10:21 | PDOC.PN ---
- Subjective Encounter Start Date: 03/16/17 Encounter Start Time: 09:10 Patient seen and examined. No new complaints. No overnight events - Objective MAR Reviewed: Yes Vital Signs & Weight: Vital Signs (12 hours) Temp Pulse Resp BP BP Pulse Ox 03/16/17 08:00 99.8 F H 109 H 20 97 03/16/17 07:57 99.8 F H 109 H 20 158/87 H 80 L 03/16/17 04:00 99.1 F 97 18 145/76 H 93 L 03/16/17 00:00 99.8 F H 93 18 144/76 H 93 L Weight Admit Weight 237 lb Weight 237 lb I&O: 03/15/17 03/16/17 03/17/17 06:59 06:59 06:59 Intake Total 1290 1250 360 Output Total 550 Balance 740 1250 360 Result Diagrams: 03/16/17 04:08 03/16/17 04:08 Additional Labs: Accuchecks 03/15/17 03/15/17 17:59 11:14 POC Glucose 128 H 162 H Phys Exam - Physical Examination Constitutional: NAD HEENT: PERRLA, moist MMs, sclera anicteric Neck: no JVD, supple Respiratory: no wheezing, no rales, no rhonchi Cardiovascular: RRR, no significant murmur, no rub Gastrointestinal: soft, non-tender, no distention, positive bowel sounds right leg with dressing Neurological: non-focal, normal sensation Lymphatic: no nodes Psychiatric: normal affect Skin: no rash, normal turgor Dx/Plan (1) Acute kidney failure Status: Resolved (2) Cellulitis of right leg Code(s): L03.115 - CELLULITIS OF RIGHT LOWER LIMB Status: Acute Comment: with necrotic ulcer, s/p I & d (3) Hypokalemia Code(s): E87.6 - HYPOKALEMIA Status: Acute (4) Sepsis with acute organ dysfunction Code(s): A41.9 - SEPSIS, UNSPECIFIED ORGANISM; R65.20 - SEVERE SEPSIS WITHOUT SEPTIC SHOCK Status: Acute (5) Ulcer of right lower leg Code(s): L97.919 - NON-PRS CHRONIC ULC UNSP PRT OF R LOW LEG W UNSP SEVERITY Status: Acute (6) Anemia, normocytic normochromic Code(s): D64.9 - ANEMIA, UNSPECIFIED Status: Chronic (7) Chronic systolic heart failure Code(s): I50.22 - CHRONIC SYSTOLIC (CONGESTIVE) HEART FAILURE Status: Chronic (8) Diabetes type 2, controlled Code(s): E11.9 - TYPE 2 DIABETES MELLITUS WITHOUT COMPLICATIONS Status: Chronic (9) Dyslipidemia Code(s): E78.5 - HYPERLIPIDEMIA, UNSPECIFIED Status: Chronic (10) Hypertension Code(s): I10 - ESSENTIAL (PRIMARY) HYPERTENSION Status: Chronic (11) Morbid obesity with BMI of 40.0-44.9, adult Code(s): E66.01 - MORBID (SEVERE) OBESITY DUE TO EXCESS CALORIES; Z68.41 - BODY MASS INDEX (BMI) 40.0-44.9, ADULT Status: Chronic - Plan cont current plan of care, continue antibiotics * continue wound care * continue vancomycin and meropenam * pain controlled * will repeat labs tomorrow * medication reviewed as below * symptomatic treatment. Review of Systems - Review of Systems Eyes: negative: Pain, Vision Change, Conjunctivae Inflammation, Eyelid Inflammation, Redness, Other ENT: negative: Ear Pain, Ear Discharge, Nose Pain, Nose Discharge, Nose Congestion, Mouth Pain, Mouth Swelling, Throat Pain, Throat Swelling, Other Respiratory: negative: Cough, Dry, Shortness of Breath, Hemoptysis, SOB with Excertion, Pleuritic Pain, Sputum, Wheezing Cardiovascular: negative: chest pain, palpitations, orthopnea, paroxysmal nocturnal dyspnea, edema, light headedness, other Gastrointestinal: negative: Nausea, Vomiting, Abdominal Pain, Diarrhea, Constipation, Melena, Hematochezia, Other Genitourinary: negative: Dysuria, Frequency, Incontinence, Hematuria, Retention , Other Musculoskeletal: Leg Pain. negative: Neck Pain, Shoulder Pain, Arm Pain, Back Pain, Hand Pain, Foot Pain, Other - Medications/Allergies Allergies/Adverse Reactions: Allergies Allergy/AdvReac Type Severity Reaction Status Date / Time No Allergy Information Allergy Verified 01/12/14 23:25 Available Medications: Current Medications Acetaminophen (Tylenol) 650 mg PO Q4H PRN PRN Reason: Headache/Fever or Pain Last Admin: 03/13/17 18:45 Dose: 650 mg Acetaminophen (Tylenol) 1,000 mg PO Q6H PRN PRN Reason: Moderate to Severe Pain (6-10) Hydrocodone Bitart/Acetaminophen ([place] 5/325) 1 tab PO Q4H PRN PRN Reason: Moderate Pain (4-6) Last Admin: 03/16/17 07:56 Dose: 1 tab Al Hydroxide/Mg Hydroxide (Maalox) 30 ml PO Q6H PRN PRN Reason: Heartburn or Indigestion Aspirin (Ecotrin) 325 mg PO DAILY [facility] Last Admin: 03/16/17 07:51 Dose: 325 mg Benzonatate (Tessalon) 100 mg PO Q4H PRN PRN Reason: Cough Bisacodyl (Dulcolax) 10 mg PO DAILYPRN PRN PRN Reason: Constipation Calcium Carbonate (Tums) 1,000 mg PO Q4H PRN PRN Reason: Heartburn or Indigestion Carvedilol (Coreg) 25 mg PO BID-[facility] Last Admin: 03/16/17 07:51 Dose: 25 mg Clonidine (Catapres) 0.1 mg PO Q4H PRN PRN Reason: Systolic BP > 160 Dextrose/Water (Dextrose 50%) 25 gm SLOW IVP PRN PRN PRN Reason: Hypoglycemia Enoxaparin Sodium (Lovenox) 40 mg SC 0900 [facility] Last Admin: 03/16/17 07:51 Dose: 40 mg Famotidine (Pepcid) 20 mg PO BID [facility] Last Admin: 03/16/17 07:57 Dose: Not Given Fenofibrate (Tricor) 145 mg PO DAILY [facility] Last Admin: 03/16/17 07:51 Dose: 145 mg Glucagon (Glucagon) 1 mg IM PRN PRN PRN Reason: Hypoglycemia Guaifenesin (Robitussin Sf) 200 mg PO Q4H PRN PRN Reason: Cough Hydralazine HCl (Apresoline) 10 mg SLOW IVP Q4H PRN PRN Reason: Systolic BP > 170 Dextrose/Water (D5w) 1,000 mls @ 0 mls/hr IV .Q0M PRN; As Directed PRN Reason: Hypoglycemia Vancomycin HCl 1.5 gm/ Sodium (Chloride) 300 mls @ 200 mls/hr IVPB Q24HR@1700 [facility] Last Admin: 03/15/17 16:59 Dose: Not Given Meropenem 1 gm/ Sterile Water 20 mls @ 240 mls/hr SLOW IVP Q8HR [facility] PRN Reason: As Directed Last Admin: 03/16/17 04:52 Dose: 20 mls Insulin Human Lispro (Humalog) 0 units SC .AGGRESSIVE SLIDING PRN PRN Reason: Aggressive Correctional Scale Last Admin: 03/14/17 16:18 Dose: 6 unit Insulin Human Lispro (Humalog) 0 units SC .BEDTIME SLIDING SC PRN PRN Reason: Bedtime Correctional Scale Loratadine (Claritin) 10 mg PO DAILYPRN PRN PRN Reason: Sinus Symptoms Lorazepam (Ativan) 1 mg PO Q4H PRN PRN Reason: Anxiety/Agitation Miscellaneous Medication (Pharmacy To Dose) 1 each IVPB PRN PRN PRN Reason: Pharmacy to dose Nitroglycerin (Nitrostat) 0.4 mg SL Q5MIN PRN PRN Reason: Chest Pain Ondansetron HCl (Zofran) 4 mg IVP Q6H PRN PRN Reason: Nausea/Vomiting Senna (Senokot) 2 tab PO HSPRN PRN PRN Reason: Constipation Simvastatin (Zocor) 40 mg PO HS [facility] Last Admin: 03/15/17 20:49 Dose: 40 mg Tramadol HCl (Ultram) 50 mg PO Q6H PRN PRN Reason: PAIN 1ST LINE Tramadol HCl (Ultram) 100 mg PO Q6H PRN PRN Reason: Pain 2ND LINE Last Admin: 03/16/17 04:52 Dose: 100 mg
[2017-03-16] MEDS: HumaLOG 300 UNITS/3 ML VIAL SC PRN (12:25)
[2017-03-16 16:51] LABS: Vancomycin, Trough 11.7 ug/mL
[2017-03-16] MEDS: Vancomycin HCl 1 GM in Premix Bag 1 BAG IVPB SCH (17:21)
[2017-03-16] MEDS: Simvastatin 40 MG TAB PO SCH (20:03)
--- NOTE | 2017-03-16 22:09 | PRG ---
Mr. Leavitt is status post last night debridement of extensive eschars, lower leg with exposed tibial is anterior tendon. Wound care has placed a wound VAC. Would recommend continuation of antibiotics. I will be out of town next week. Please call Dr. Dinh or Dr. Douglas to see the wound next week with a wound VAC change. Patient is at risk for limb loss. He has tendon exposure. I will return next Monday. Please call Dr. Douglas or Dr. Dinh to view the wound early next week.
[2017-03-17] MEDS: Vancomycin HCl 1 GM in Premix Bag 1 BAG IVPB SCH ×2 (04:24→16:16)
[2017-03-17 04:34] LABS: #Basophils 0.1 thou/uL (0.0-0.2); #Eosinphils 0.4 thou/uL (0.0-0.7); #Lymphocytes 1.1 thou/uL (1.20-3.40); #Neutrophils 11.9 thou/uL (1.40-6.50); %Basophils 0.4 % (0.0-1.0); %Eosinophils 2.9 % (0.0-10.0); %Lymphocytes 7.6 % (21.0-51.0); %Monocytes 7.1 % (0.0-10.0); Hemoglobin 9.9 g/dL (14.0-18.0); Mean Corpuscular HGB CONC 31.3 g/dL (32.0-36.0); Mean Corpuscular Hemoglobin 27.5 pg (27.0-31.0); Mean Corpuscular Volume 87.9 fl (80.0-94.0); Mean Platelet Volume 6.6 fL (7.4-10.4); Platelet Count 327 thou/uL (130-400); RBC Distribution Width 15.4 % (11.5-14.5); Red Blood Cell (RBC) Count 3.62 mill/uL (4.70-6.10); White Blood Cell (WBC) Count 14.5 thou/uL (4.8-10.8)
[2017-03-17] MEDS: HumaLOG 300 UNITS/3 ML VIAL SC PRN ×2 (06:03→12:25)
[2017-03-17] MEDS: Meropenem 1 GM in Sterile Water 20 ML SLOW IVP SCH ×3 (06:05→22:02)
[2017-03-17] MEDS: Carvedilol 25 MG TAB PO SCH ×2 (08:13→16:16)
[2017-03-17] MEDS: Fenofibrate Nanocrystallized 145 MG TAB PO SCH (08:13)
[2017-03-17] MEDS: Famotidine 20 MG TAB PO SCH ×2 (08:13→22:02)
[2017-03-17] MEDS: Aspirin 325 mg Enteric Coated Tablet PO SCH (08:13)
[2017-03-17] MEDS: Folic Acid 1 MG TAB PO SCH (08:13)
[2017-03-17] MEDS: Multivit, Therapeutic 1 TAB PO SCH (08:13)
[2017-03-17] MEDS: metFORMIN 500 MG TAB PO SCH ×2 (08:13→16:16)
[2017-03-17] MEDS: Enoxaparin Sodium 40 MG/0.4 ML SYRINGE SC SCH (08:14)
[2017-03-17] MEDS: Insulin NPH/Reg Insulin Hm 300 UNITS/3 ML VIAL SC SCH ×2 (08:17→16:52)
--- NOTE | 2017-03-17 11:56 | PDOC.PN ---
- Subjective Encounter Start Date: 03/17/17 Encounter Start Time: 08:30 Patient seen and examined. No new complaints. No overnight events - Objective MAR Reviewed: Yes Vital Signs & Weight: Vital Signs (12 hours) Temp Pulse Resp BP BP Pulse Ox 03/17/17 11:46 99.8 F H 82 16 131/63 03/17/17 08:00 100.0 F H 91 20 03/17/17 07:52 100.0 F H 91 20 152/76 H 92 L 03/17/17 05:11 92 L Weight Admit Weight 237 lb Weight 237 lb I&O: 03/16/17 03/17/17 03/18/17 06:59 06:59 06:59 Intake Total 1250 840 Output Total 800 Balance 1250 40 Result Diagrams: 03/17/17 04:04 03/16/17 04:08 Additional Labs: Accuchecks 03/17/17 03/16/17 03/16/17 04:31 20:13 16:01 POC Glucose 267 H 295 H 210 H Phys Exam - Physical Examination Constitutional: NAD HEENT: PERRLA, moist MMs, sclera anicteric Neck: no JVD, supple Respiratory: no wheezing, no rales, no rhonchi Cardiovascular: RRR, no significant murmur, no rub Gastrointestinal: soft, non-tender, no distention, positive bowel sounds Musculoskeletal: no edema right leg with dressing and wound vac+ Neurological: non-focal, normal sensation Lymphatic: no nodes Psychiatric: normal affect, A&O x 3 Skin: no rash, normal turgor Dx/Plan (1) Acute kidney failure Status: Resolved (2) Cellulitis of right leg Code(s): L03.115 - CELLULITIS OF RIGHT LOWER LIMB Status: Acute Comment: with necrotic ulcer, s/p I & d (3) Hypokalemia Code(s): E87.6 - HYPOKALEMIA Status: Acute (4) Sepsis with acute organ dysfunction Code(s): A41.9 - SEPSIS, UNSPECIFIED ORGANISM; R65.20 - SEVERE SEPSIS WITHOUT SEPTIC SHOCK Status: Acute (5) Ulcer of right lower leg Code(s): L97.919 - NON-PRS CHRONIC ULC UNSP PRT OF R LOW LEG W UNSP SEVERITY Status: Acute (6) Anemia, normocytic normochromic Code(s): D64.9 - ANEMIA, UNSPECIFIED Status: Chronic (7) Chronic systolic heart failure Code(s): I50.22 - CHRONIC SYSTOLIC (CONGESTIVE) HEART FAILURE Status: Chronic (8) Diabetes type 2, controlled Code(s): E11.9 - TYPE 2 DIABETES MELLITUS WITHOUT COMPLICATIONS Status: Chronic (9) Dyslipidemia Code(s): E78.5 - HYPERLIPIDEMIA, UNSPECIFIED Status: Chronic (10) Hypertension Code(s): I10 - ESSENTIAL (PRIMARY) HYPERTENSION Status: Chronic (11) Morbid obesity with BMI of 40.0-44.9, adult Code(s): E66.01 - MORBID (SEVERE) OBESITY DUE TO EXCESS CALORIES; Z68.41 - BODY MASS INDEX (BMI) 40.0-44.9, ADULT Status: Chronic - Plan cont current plan of care, continue antibiotics * continue meropenam and vancomycin * wound care * medication reviewed as below * symptomatic treatment * will repeat labs tomorrow. Review of Systems - Review of Systems ENT: negative: Ear Pain, Ear Discharge, Nose Pain, Nose Discharge, Nose Congestion, Mouth Pain, Mouth Swelling, Throat Pain, Throat Swelling, Other Respiratory: negative: Cough, Dry, Shortness of Breath, Hemoptysis, SOB with Excertion, Pleuritic Pain, Sputum, Wheezing Cardiovascular: negative: chest pain, palpitations, orthopnea, paroxysmal nocturnal dyspnea, edema, light headedness, other Gastrointestinal: negative: Nausea, Vomiting, Abdominal Pain, Diarrhea, Constipation, Melena, Hematochezia, Other Genitourinary: negative: Dysuria, Frequency, Incontinence, Hematuria, Retention , Other Musculoskeletal: Leg Pain. negative: Neck Pain, Shoulder Pain, Arm Pain, Back Pain, Hand Pain, Foot Pain, Other Skin: negative: Rash, Lesions, Jeff, Bruising, Other - Medications/Allergies Allergies/Adverse Reactions: Allergies Allergy/AdvReac Type Severity Reaction Status Date / Time No Allergy Information Allergy Verified 01/12/14 23:25 Available Medications: Current Medications Acetaminophen (Tylenol) 1,000 mg PO Q6H PRN PRN Reason: Moderate to Severe Pain (6-10) Hydrocodone Bitart/Acetaminophen ([place] 5/325) 1 tab PO Q4H PRN PRN Reason: Moderate Pain (4-6) Last Admin: 03/16/17 20:06 Dose: 1 tab Al Hydroxide/Mg Hydroxide (Maalox) 30 ml PO Q6H PRN PRN Reason: Heartburn or Indigestion Aspirin (Ecotrin) 325 mg PO DAILY [facility] Last Admin: 03/17/17 08:13 Dose: 325 mg Benzonatate (Tessalon) 100 mg PO Q4H PRN PRN Reason: Cough Bisacodyl (Dulcolax) 10 mg PO DAILYPRN PRN PRN Reason: Constipation Calcium Carbonate (Tums) 1,000 mg PO Q4H PRN PRN Reason: Heartburn or Indigestion Carvedilol (Coreg) 25 mg PO BID-[facility] Last Admin: 03/17/17 08:13 Dose: 25 mg Clonidine (Catapres) 0.1 mg PO Q4H PRN PRN Reason: Systolic BP > 160 Dextrose/Water (Dextrose 50%) 25 gm SLOW IVP PRN PRN PRN Reason: Hypoglycemia Enoxaparin Sodium (Lovenox) 40 mg SC 0900 [facility] Last Admin: 03/17/17 08:14 Dose: 40 mg Famotidine (Pepcid) 20 mg PO BID [facility] Last Admin: 03/17/17 08:13 Dose: 20 mg Fenofibrate (Tricor) 145 mg PO DAILY [facility] Last Admin: 03/17/17 08:13 Dose: 145 mg Folic Acid (Folvite) 1 mg PO DAILY [facility] Last Admin: 03/17/17 08:13 Dose: 1 mg Glucagon (Glucagon) 1 mg IM PRN PRN PRN Reason: Hypoglycemia Guaifenesin (Robitussin Sf) 200 mg PO Q4H PRN PRN Reason: Cough Hydralazine HCl (Apresoline) 10 mg SLOW IVP Q4H PRN PRN Reason: Systolic BP > 170 Dextrose/Water (D5w) 1,000 mls @ 0 mls/hr IV .Q0M PRN; As Directed PRN Reason: Hypoglycemia Meropenem 1 gm/ Sterile Water 20 mls @ 240 mls/hr SLOW IVP Q8HR [facility] PRN Reason: As Directed Last Admin: 03/17/17 06:05 Dose: 20 mls Vancomycin HCl 1 gm/ Device 200 mls @ 200 mls/hr IVPB 0500,1700 [facility] Last Admin: 03/17/17 04:24 Dose: 200 mls Insulin Human Isoph/Insulin Regular (Humulin 70/30) 10 units SC BID-[facility] Last Admin: 03/17/17 08:17 Dose: 10 unit Insulin Human Lispro (Humalog) 0 units SC .AGGRESSIVE SLIDING PRN PRN Reason: Aggressive Correctional Scale Last Admin: 03/17/17 06:03 Dose: 9 unit Insulin Human Lispro (Humalog) 0 units SC .BEDTIME SLIDING [place] PRN PRN Reason: Bedtime Correctional Scale Loratadine (Claritin) 10 mg PO DAILYPRN PRN PRN Reason: Sinus Symptoms Lorazepam (Ativan) 1 mg PO Q4H PRN PRN Reason: Anxiety/Agitation Metformin HCl (Glucophage) 500 mg PO BID-[facility] Last Admin: 03/17/17 08:13 Dose: 500 mg Miscellaneous Medication (Pharmacy To Dose) 1 each IVPB PRN PRN PRN Reason: Pharmacy to dose Multivitamins (Theragran) 1 tab PO DAILY [facility] Last Admin: 03/17/17 08:13 Dose: 1 tab Nitroglycerin (Nitrostat) 0.4 mg SL Q5MIN PRN PRN Reason: Chest Pain Ondansetron HCl (Zofran) 4 mg IVP Q6H PRN PRN Reason: Nausea/Vomiting Senna (Senokot) 2 tab PO HSPRN PRN PRN Reason: Constipation Simvastatin (Zocor) 40 mg PO [facility] Last Admin: 03/16/17 20:03 Dose: 40 mg Thiamine HCl (Thiamine) 100 mg PO DAILY [facility] Last Admin: 03/17/17 08:13 Dose: 100 mg Tramadol HCl (Ultram) 50 mg PO Q6H PRN PRN Reason: PAIN 1ST LINE Tramadol HCl (Ultram) 100 mg PO Q6H PRN PRN Reason: Pain 2ND LINE Last Admin: 03/16/17 04:52 Dose: 100 mg
[2017-03-17] MEDS ORDERED: Simvastatin 40 MG TAB PO SCH (21:00)
[2017-03-17] MEDS: Simvastatin 40 MG TAB PO SCH (22:01)
[2017-03-18 04:27] LABS: #Eosinphils 0.6 thou/uL (0.0-0.7); #Lymphocytes 1.1 thou/uL (1.20-3.40); #Neutrophils 10.6 thou/uL (1.40-6.50); %Basophils 0.3 % (0.0-1.0); %Eosinophils 4.8 % (0.0-10.0); %Lymphocytes 8.2 % (21.0-51.0); %Monocytes 7.3 % (0.0-10.0); %Neutrophils 79.4 % (42.0-75.0); Hemoglobin 10.2 g/dL (14.0-18.0); Mean Corpuscular HGB CONC 31.5 g/dL (32.0-36.0); Mean Corpuscular Hemoglobin 27.4 pg (27.0-31.0); Mean Corpuscular Volume 87.1 fl (80.0-94.0); Mean Platelet Volume 6.8 fL (7.4-10.4); Platelet Count 299 thou/uL (130-400); RBC Distribution Width 15.4 % (11.5-14.5); Red Blood Cell (RBC) Count 3.74 mill/uL (4.70-6.10); White Blood Cell (WBC) Count 13.4 thou/uL (4.8-10.8)
[2017-03-18 04:49] LABS: Vancomycin, Trough 23.3 ug/mL
[2017-03-18 04:55] LABS: Anion Gap 14 mmol/L (10-20); BUN (Urea Nitrogen) 25 mg/dL (8.4-25.7); CRP (Inflammatory) 8.92 mg/dL (= or < 0.5); Calc. Creatinine Clearance 124 mL/min (70-130); Calcium 8.7 mg/dL (7.8-10.44); Carbon Dioxide 29 mmol/L (22-29); Chloride 103 mmol/L (98-107); Estimated GFR-MDRD 78; Glucose 209 mg/dL (70-105); Sodium 142 mmol/L (136-145)
[2017-03-18] MEDS: Vancomycin HCl 1 GM in Premix Bag 1 BAG IVPB SCH (05:30)
[2017-03-18] MEDS: Meropenem 1 GM in Sterile Water 20 ML SLOW IVP SCH ×3 (06:27→23:11)
[2017-03-18] MEDS: metFORMIN 500 MG TAB PO SCH ×2 (08:49→15:57)
[2017-03-18] MEDS: Carvedilol 25 MG TAB PO SCH ×2 (08:50→16:05)
[2017-03-18] MEDS: Fenofibrate Nanocrystallized 145 MG TAB PO SCH (08:50)
[2017-03-18] MEDS: Aspirin 325 mg Enteric Coated Tablet PO SCH (08:51)
[2017-03-18] MEDS: Famotidine 20 MG TAB PO SCH ×2 (08:51→18:30)
[2017-03-18] MEDS: Multivit, Therapeutic 1 TAB PO SCH (08:51)
[2017-03-18] MEDS: Folic Acid 1 MG TAB PO SCH (08:51)
[2017-03-18] MEDS: Enoxaparin Sodium 40 MG/0.4 ML SYRINGE SC SCH (08:51)
[2017-03-18] MEDS: Insulin NPH/Reg Insulin Hm 300 UNITS/3 ML VIAL SC SCH ×2 (08:52→15:57)
[2017-03-18] MEDS: HYDROcodone/Acetaminophen 5/325 mg Tablet PO PRN ×3 (11:00→23:21)
[2017-03-18] MEDS: HumaLOG 300 UNITS/3 ML VIAL SC PRN (11:03)
--- NOTE | 2017-03-18 11:20 | PDOC.PN ---
- Subjective Encounter Start Date: 03/18/17 Encounter Start Time: 08:30 Patient seen and examined. No new complaints. No overnight events - Objective MAR Reviewed: Yes Vital Signs & Weight: Vital Signs (12 hours) Temp Pulse Resp BP Pulse Ox 03/18/17 08:00 99.5 F 84 16 03/18/17 07:42 97 03/18/17 07:16 99.5 F 84 16 138/83 Weight Admit Weight 237 lb Weight 237 lb I&O: 03/17/17 03/18/17 03/19/17 06:59 06:59 06:59 Intake Total 840 750 Output Total 800 775 Balance 40 -25 Result Diagrams: 03/18/17 03:57 03/18/17 03:57 Additional Labs: Accuchecks 03/18/17 03/17/17 03/17/17 04:57 16:08 12:12 POC Glucose 205 H 293 H 220 H 03/16/17 03/15/17 04:35 20:26 POC Glucose 146 H 147 H Phys Exam - Physical Examination Constitutional: NAD HEENT: PERRLA, moist MMs, sclera anicteric Neck: no JVD, supple Respiratory: no wheezing, no rales, no rhonchi Cardiovascular: RRR, no significant murmur, no rub Gastrointestinal: soft, non-tender, no distention, positive bowel sounds wound vac in place Neurological: non-focal, normal sensation Psychiatric: normal affect, A&O x 3 Skin: no rash, normal turgor Dx/Plan (1) Acute kidney failure Status: Resolved (2) Cellulitis of right leg Code(s): L03.115 - CELLULITIS OF RIGHT LOWER LIMB Status: Acute Comment: with necrotic ulcer, s/p I & d (3) Hypokalemia Code(s): E87.6 - HYPOKALEMIA Status: Acute (4) Sepsis with acute organ dysfunction Code(s): A41.9 - SEPSIS, UNSPECIFIED ORGANISM; R65.20 - SEVERE SEPSIS WITHOUT SEPTIC SHOCK Status: Acute (5) Ulcer of right lower leg Code(s): L97.919 - NON-PRS CHRONIC ULC UNSP PRT OF R LOW LEG W UNSP SEVERITY Status: Acute (6) Anemia, normocytic normochromic Code(s): D64.9 - ANEMIA, UNSPECIFIED Status: Chronic (7) Chronic systolic heart failure Code(s): I50.22 - CHRONIC SYSTOLIC (CONGESTIVE) HEART FAILURE Status: Chronic (8) Diabetes type 2, controlled Code(s): E11.9 - TYPE 2 DIABETES MELLITUS WITHOUT COMPLICATIONS Status: Chronic (9) Dyslipidemia Code(s): E78.5 - HYPERLIPIDEMIA, UNSPECIFIED Status: Chronic (10) Hypertension Code(s): I10 - ESSENTIAL (PRIMARY) HYPERTENSION Status: Chronic (11) Morbid obesity with BMI of 40.0-44.9, adult Code(s): E66.01 - MORBID (SEVERE) OBESITY DUE TO EXCESS CALORIES; Z68.41 - BODY MASS INDEX (BMI) 40.0-44.9, ADULT Status: Chronic - Plan cont current plan of care, continue antibiotics * continue meropenam and vancomycin * wound care with wound vac * medication reviewed as below * symptomatic treatment * pt is at risk for limb loss, he will need to be aggressively treated in hospital. Review of Systems - Review of Systems Constitutional: negative: fever, chills, sweats, weakness, malaise, other ENT: negative: Ear Pain, Ear Discharge, Nose Pain, Nose Discharge, Nose Congestion, Mouth Pain, Mouth Swelling, Throat Pain, Throat Swelling, Other Respiratory: negative: Cough, Dry, Shortness of Breath, Hemoptysis, SOB with Excertion, Pleuritic Pain, Sputum, Wheezing Cardiovascular: negative: chest pain, palpitations, orthopnea, paroxysmal nocturnal dyspnea, edema, light headedness, other Gastrointestinal: negative: Nausea, Vomiting, Abdominal Pain, Diarrhea, Constipation, Melena, Hematochezia, Other Genitourinary: negative: Dysuria, Frequency, Incontinence, Hematuria, Retention , Other Musculoskeletal: Leg Pain. negative: Neck Pain, Shoulder Pain, Arm Pain, Back Pain, Hand Pain, Foot Pain, Other - Medications/Allergies Allergies/Adverse Reactions: Allergies Allergy/AdvReac Type Severity Reaction Status Date / Time No Allergy Information Allergy Verified 01/12/14 23:25 Available Medications: Current Medications Acetaminophen (Tylenol) 1,000 mg PO Q6H PRN PRN Reason: Moderate to Severe Pain (6-10) Hydrocodone Bitart/Acetaminophen ([place] 5/325) 1 tab PO Q4H PRN PRN Reason: Moderate Pain (4-6) Last Admin: 03/18/17 11:00 Dose: 1 tab Al Hydroxide/Mg Hydroxide (Maalox) 30 ml PO Q6H PRN PRN Reason: Heartburn or Indigestion Aspirin (Ecotrin) 325 mg PO DAILY [facility] Last Admin: 03/18/17 08:51 Dose: 325 mg Benzonatate (Tessalon) 100 mg PO Q4H PRN PRN Reason: Cough Bisacodyl (Dulcolax) 10 mg PO DAILYPRN PRN PRN Reason: Constipation Calcium Carbonate (Tums) 1,000 mg PO Q4H PRN PRN Reason: Heartburn or Indigestion Carvedilol (Coreg) 25 mg PO BID-[facility] Last Admin: 03/18/17 08:50 Dose: 25 mg Clonidine (Catapres) 0.1 mg PO Q4H PRN PRN Reason: Systolic BP > 160 Dextrose/Water (Dextrose 50%) 25 gm SLOW IVP PRN PRN PRN Reason: Hypoglycemia Enoxaparin Sodium (Lovenox) 40 mg SC 0900 [facility] Last Admin: 03/18/17 08:51 Dose: 40 mg Famotidine (Pepcid) 20 mg PO BID [facility] Last Admin: 03/18/17 08:51 Dose: 20 mg Fenofibrate (Tricor) 145 mg PO DAILY [facility] Last Admin: 03/18/17 08:50 Dose: 145 mg Folic Acid (Folvite) 1 mg PO DAILY [facility] Last Admin: 03/18/17 08:51 Dose: 1 mg Glucagon (Glucagon) 1 mg IM PRN PRN PRN Reason: Hypoglycemia Guaifenesin (Robitussin Sf) 200 mg PO Q4H PRN PRN Reason: Cough Hydralazine HCl (Apresoline) 10 mg SLOW IVP Q4H PRN PRN Reason: Systolic BP > 170 Dextrose/Water (D5w) 1,000 mls @ 0 mls/hr IV .Q0M PRN; As Directed PRN Reason: Hypoglycemia Meropenem 1 gm/ Sterile Water 20 mls @ 240 mls/hr SLOW IVP Q8HR [facility] PRN Reason: As Directed Last Admin: 03/18/17 06:27 Dose: 20 mls Vancomycin HCl 1.75 gm/ Sodium (Chloride) 500 mls @ 250 mls/hr IVPB Q24HR@1500 [facility] Insulin Human Isoph/Insulin Regular (Humulin 70/30) 10 units SC BID-[facility] Last Admin: 03/18/17 08:52 Dose: 10 unit Insulin Human Lispro (Humalog) 0 units SC .AGGRESSIVE SLIDING PRN PRN Reason: Aggressive Correctional Scale Last Admin: 03/18/17 11:03 Dose: 6 unit Insulin Human Lispro (Humalog) 0 units SC .BEDTIME SLIDING SC PRN PRN Reason: Bedtime Correctional Scale Loratadine (Claritin) 10 mg PO DAILYPRN PRN PRN Reason: Sinus Symptoms Lorazepam (Ativan) 1 mg PO Q4H PRN PRN Reason: Anxiety/Agitation Metformin HCl (Glucophage) 500 mg PO BID-[facility] Last Admin: 03/18/17 08:49 Dose: 500 mg Miscellaneous Medication (Pharmacy To Dose) 1 each IVPB PRN PRN PRN Reason: Pharmacy to dose Multivitamins (Theragran) 1 tab PO DAILY [facility] Last Admin: 03/18/17 08:51 Dose: 1 tab Nitroglycerin (Nitrostat) 0.4 mg SL Q5MIN PRN PRN Reason: Chest Pain Ondansetron HCl (Zofran) 4 mg IVP Q6H PRN PRN Reason: Nausea/Vomiting Senna (Senokot) 2 tab PO HSPRN PRN PRN Reason: Constipation Simvastatin (Zocor) 40 mg PO [facility] Last Admin: 03/17/17 22:01 Dose: 40 mg Thiamine HCl (Thiamine) 100 mg PO DAILY [facility] Last Admin: 03/18/17 08:50 Dose: 100 mg Tramadol HCl (Ultram) 50 mg PO Q6H PRN PRN Reason: PAIN 1ST LINE Tramadol HCl (Ultram) 100 mg PO Q6H PRN PRN Reason: Pain 2ND LINE Last Admin: 03/16/17 04:52 Dose: 100 mg
[2017-03-18] MEDS: Vancomycin HCl 1.75 GM in Sodium Chloride 0.9% 500 ML IVPB SCH (14:16)
[2017-03-18] MEDS: Simvastatin 40 MG TAB PO SCH (18:30)
[2017-03-19] MEDS: Meropenem 1 GM in Sterile Water 20 ML SLOW IVP SCH ×3 (06:37→21:46)
[2017-03-19] MEDS: Carvedilol 25 MG TAB PO SCH ×2 (08:38→15:05)
[2017-03-19] MEDS: Fenofibrate Nanocrystallized 145 MG TAB PO SCH (08:38)
[2017-03-19] MEDS: Aspirin 325 mg Enteric Coated Tablet PO SCH (08:38)
[2017-03-19] MEDS: metFORMIN 500 MG TAB PO SCH ×2 (08:38→15:11)
[2017-03-19] MEDS: Famotidine 20 MG TAB PO SCH ×2 (08:39→21:45)
[2017-03-19] MEDS: Folic Acid 1 MG TAB PO SCH (08:39)
[2017-03-19] MEDS: Insulin NPH/Reg Insulin Hm 300 UNITS/3 ML VIAL SC SCH ×2 (08:40→15:11)
[2017-03-19] MEDS: Multivit, Therapeutic 1 TAB PO SCH (08:42)
[2017-03-19] MEDS: Enoxaparin Sodium 40 MG/0.4 ML SYRINGE SC SCH (08:42)
--- NOTE | 2017-03-19 10:07 | PDOC.PN ---
- Subjective Encounter Start Date: 03/19/17 Encounter Start Time: 08:00 Patient seen and examined. No new complaints. No overnight events - Objective MAR Reviewed: Yes Vital Signs & Weight: Vital Signs (12 hours) Temp Pulse Resp BP Pulse Ox 03/19/17 08:16 99.0 F 76 18 160/101 H 96 03/19/17 08:00 99.0 F 76 18 Weight Admit Weight 237 lb Weight 237 lb I&O: 03/18/17 03/19/17 03/20/17 06:59 06:59 06:59 Intake Total 750 550 Output Total 775 625 Balance -25 -75 Result Diagrams: 03/18/17 03:57 03/18/17 03:57 Additional Labs: Accuchecks 03/19/17 03/18/17 03/18/17 07:14 20:41 15:55 POC Glucose 133 H 174 H 164 H 03/18/17 03/17/17 11:00 19:48 POC Glucose 232 H 264 H Phys Exam - Physical Examination Constitutional: NAD HEENT: PERRLA, moist MMs, sclera anicteric Neck: no JVD, supple Respiratory: no wheezing, no rales, no rhonchi Cardiovascular: RRR, no significant murmur, no rub Gastrointestinal: soft, non-tender, no distention, positive bowel sounds Musculoskeletal: no edema, pulses present right leg with wound vac+ Neurological: non-focal, normal sensation, moves all 4 limbs Psychiatric: normal affect, A&O x 3 Skin: no rash, normal turgor Dx/Plan (1) Acute kidney failure Status: Resolved (2) Cellulitis of right leg Code(s): L03.115 - CELLULITIS OF RIGHT LOWER LIMB Status: Acute Comment: with necrotic ulcer, s/p I & d (3) Hypokalemia Code(s): E87.6 - HYPOKALEMIA Status: Acute (4) Sepsis with acute organ dysfunction Code(s): A41.9 - SEPSIS, UNSPECIFIED ORGANISM; R65.20 - SEVERE SEPSIS WITHOUT SEPTIC SHOCK Status: Acute (5) Ulcer of right lower leg Code(s): L97.919 - NON-PRS CHRONIC ULC UNSP PRT OF R LOW LEG W UNSP SEVERITY Status: Acute (6) Anemia, normocytic normochromic Code(s): D64.9 - ANEMIA, UNSPECIFIED Status: Chronic (7) Chronic systolic heart failure Code(s): I50.22 - CHRONIC SYSTOLIC (CONGESTIVE) HEART FAILURE Status: Chronic (8) Diabetes type 2, controlled Code(s): E11.9 - TYPE 2 DIABETES MELLITUS WITHOUT COMPLICATIONS Status: Chronic (9) Dyslipidemia Code(s): E78.5 - HYPERLIPIDEMIA, UNSPECIFIED Status: Chronic (10) Hypertension Code(s): I10 - ESSENTIAL (PRIMARY) HYPERTENSION Status: Chronic (11) Morbid obesity with BMI of 40.0-44.9, adult Code(s): E66.01 - MORBID (SEVERE) OBESITY DUE TO EXCESS CALORIES; Z68.41 - BODY MASS INDEX (BMI) 40.0-44.9, ADULT Status: Chronic - Plan cont current plan of care, 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 Review of Systems - Review of Systems ENT: negative: Ear Pain, Ear Discharge, Nose Pain, Nose Discharge, Nose Congestion, Mouth Pain, Mouth Swelling, Throat Pain, Throat Swelling, Other Respiratory: negative: Cough, Dry, Shortness of Breath, Hemoptysis, SOB with Excertion, Pleuritic Pain, Sputum, Wheezing Cardiovascular: negative: chest pain, palpitations, orthopnea, paroxysmal nocturnal dyspnea, edema, light headedness, other Gastrointestinal: negative: Nausea, Vomiting, Abdominal Pain, Diarrhea, Constipation, Melena, Hematochezia, Other Genitourinary: negative: Dysuria, Frequency, Incontinence, Hematuria, Retention , Other Musculoskeletal: negative: Neck Pain, Shoulder Pain, Arm Pain, Back Pain, Hand Pain, Leg Pain, Foot Pain, Other Skin: negative: Rash, Lesions, Jeff, Bruising, Other - Medications/Allergies Allergies/Adverse Reactions: Allergies Allergy/AdvReac Type Severity Reaction Status Date / Time No Allergy Information Allergy Verified 01/12/14 23:25 Available Medications: Current Medications Acetaminophen (Tylenol) 1,000 mg PO Q6H PRN PRN Reason: Moderate to Severe Pain (6-10) Hydrocodone Bitart/Acetaminophen ([place] 5/325) 1 tab PO Q4H PRN PRN Reason: Moderate Pain (4-6) Last Admin: 03/18/17 23:21 Dose: 1 tab Al Hydroxide/Mg Hydroxide (Maalox) 30 ml PO Q6H PRN PRN Reason: Heartburn or Indigestion Aspirin (Ecotrin) 325 mg PO DAILY [facility] Last Admin: 03/19/17 08:38 Dose: 325 mg Benzonatate (Tessalon) 100 mg PO Q4H PRN PRN Reason: Cough Bisacodyl (Dulcolax) 10 mg PO DAILYPRN PRN PRN Reason: Constipation Calcium Carbonate (Tums) 1,000 mg PO Q4H PRN PRN Reason: Heartburn or Indigestion Carvedilol (Coreg) 25 mg PO BID-[facility] Last Admin: 03/19/17 08:38 Dose: 25 mg Clonidine (Catapres) 0.1 mg PO Q4H PRN PRN Reason: Systolic BP > 160 Dextrose/Water (Dextrose 50%) 25 gm SLOW IVP PRN PRN PRN Reason: Hypoglycemia Enoxaparin Sodium (Lovenox) 40 mg SC 0900 [facility] Last Admin: 03/19/17 08:42 Dose: Not Given Famotidine (Pepcid) 20 mg PO BID [facility] Last Admin: 03/19/17 08:39 Dose: 20 mg Fenofibrate (Tricor) 145 mg PO DAILY [facility] Last Admin: 03/19/17 08:38 Dose: 145 mg Folic Acid (Folvite) 1 mg PO DAILY [facility] Last Admin: 03/19/17 08:39 Dose: 1 mg Glucagon (Glucagon) 1 mg IM PRN PRN PRN Reason: Hypoglycemia Guaifenesin (Robitussin Sf) 200 mg PO Q4H PRN PRN Reason: Cough Hydralazine HCl (Apresoline) 10 mg SLOW IVP Q4H PRN PRN Reason: Systolic BP > 170 Dextrose/Water (D5w) 1,000 mls @ 0 mls/hr IV .Q0M PRN; As Directed PRN Reason: Hypoglycemia Meropenem 1 gm/ Sterile Water 20 mls @ 240 mls/hr SLOW IVP Q8HR [facility] PRN Reason: As Directed Last Admin: 03/19/17 06:37 Dose: 20 mls Vancomycin HCl 1.75 gm/ Sodium (Chloride) 500 mls @ 250 mls/hr IVPB Q24HR@1500 [facility] Last Admin: 03/18/17 14:16 Dose: 500 mls Insulin Human Isoph/Insulin Regular (Humulin 70/30) 10 units SC BID-[facility] Last Admin: 03/19/17 08:40 Dose: 10 unit Insulin Human Lispro (Humalog) 0 units SC .AGGRESSIVE SLIDING PRN PRN Reason: Aggressive Correctional Scale Last Admin: 03/18/17 11:03 Dose: 6 unit Insulin Human Lispro (Humalog) 0 units SC .BEDTIME SLIDING SC PRN PRN Reason: Bedtime Correctional Scale Loratadine (Claritin) 10 mg PO DAILYPRN PRN PRN Reason: Sinus Symptoms Lorazepam (Ativan) 1 mg PO Q4H PRN PRN Reason: Anxiety/Agitation Metformin HCl (Glucophage) 500 mg PO BID-[facility] Last Admin: 03/19/17 08:38 Dose: 500 mg Miscellaneous Medication (Pharmacy To Dose) 1 each IVPB PRN PRN PRN Reason: Pharmacy to dose Multivitamins (Theragran) 1 tab PO DAILY [facility] Last Admin: 03/19/17 08:42 Dose: 1 tab Nitroglycerin (Nitrostat) 0.4 mg SL Q5MIN PRN PRN Reason: Chest Pain Ondansetron HCl (Zofran) 4 mg IVP Q6H PRN PRN Reason: Nausea/Vomiting Senna (Senokot) 2 tab PO HSPRN PRN PRN Reason: Constipation Simvastatin (Zocor) 40 mg PO HS [facility] Last Admin: 03/18/17 18:30 Dose: 40 mg Thiamine HCl (Thiamine) 100 mg PO DAILY [facility] Last Admin: 03/19/17 08:37 Dose: 100 mg Tramadol HCl (Ultram) 50 mg PO Q6H PRN PRN Reason: PAIN 1ST LINE Tramadol HCl (Ultram) 100 mg PO Q6H PRN PRN Reason: Pain 2ND LINE Last Admin: 03/16/17 04:52 Dose: 100 mg
[2017-03-19] MEDS: Vancomycin HCl 1.75 GM in Sodium Chloride 0.9% 500 ML IVPB SCH (15:05)
[2017-03-19] MEDS: HYDROcodone/Acetaminophen 5/325 mg Tablet PO PRN ×2 (15:12→21:45)
[2017-03-19] MEDS: Simvastatin 40 MG TAB PO SCH (21:45)
[2017-03-20] MEDS: HYDROcodone/Acetaminophen 5/325 mg Tablet PO PRN ×4 (04:55→21:25)
[2017-03-20] MEDS: Meropenem 1 GM in Sterile Water 20 ML SLOW IVP SCH ×4 (06:21→22:24)
[2017-03-20 08:35] LABS: #Basophils 0.1 thou/uL (0.0-0.2); #Eosinphils 0.6 thou/uL (0.0-0.7); #Lymphocytes 1.5 thou/uL (1.20-3.40); #Neutrophils 9.9 thou/uL (1.40-6.50); %Basophils 0.4 % (0.0-1.0); %Eosinophils 4.3 % (0.0-10.0); %Lymphocytes 11.7 % (21.0-51.0); %Monocytes 7.8 % (0.0-10.0); %Neutrophils 75.9 % (42.0-75.0); Hemoglobin 11.4 g/dL (14.0-18.0); Mean Corpuscular HGB CONC 30.8 g/dL (32.0-36.0); Mean Corpuscular Hemoglobin 26.9 pg (27.0-31.0); Mean Corpuscular Volume 87.3 fl (80.0-94.0); Mean Platelet Volume 6.8 fL (7.4-10.4); Platelet Count 375 thou/uL (130-400); RBC Distribution Width 15.7 % (11.5-14.5); Red Blood Cell (RBC) Count 4.24 mill/uL (4.70-6.10)
[2017-03-20 08:46] LABS: Anion Gap 12 mmol/L (10-20); BUN (Urea Nitrogen) 20 mg/dL (8.4-25.7); Calc. Creatinine Clearance 149 mL/min (70-130); Calcium 9.6 mg/dL (7.8-10.44); Carbon Dioxide 28 mmol/L (22-29); Chloride 103 mmol/L (98-107); Estimated GFR-MDRD Greater than 90; Glucose 164 mg/dL (70-105); Potassium 4.6 mmol/L (3.5-5.1); Sodium 138 mmol/L (136-145)
[2017-03-20] MEDS: metFORMIN 500 MG TAB PO SCH ×2 (08:50→16:48)
[2017-03-20] MEDS: Carvedilol 25 MG TAB PO SCH ×2 (08:50→16:48)
[2017-03-20] MEDS: Folic Acid 1 MG TAB PO SCH (08:50)
[2017-03-20] MEDS: Multivit, Therapeutic 1 TAB PO SCH (08:50)
[2017-03-20] MEDS: Fenofibrate Nanocrystallized 145 MG TAB PO SCH (08:50)
[2017-03-20] MEDS: Aspirin 325 mg Enteric Coated Tablet PO SCH (08:50)
[2017-03-20] MEDS: Famotidine 20 MG TAB PO SCH ×2 (08:50→21:21)
[2017-03-20] MEDS: Insulin NPH/Reg Insulin Hm 300 UNITS/3 ML VIAL SC SCH ×2 (08:51→16:48)
[2017-03-20] MEDS: Enoxaparin Sodium 40 MG/0.4 ML SYRINGE SC SCH (08:51)
--- NOTE | 2017-03-20 10:15 | PDOC.PN ---
- Subjective Encounter Start Date: 03/20/17 Encounter Start Time: 09:20 Patient seen and examined. No new complaints. No overnight events - Objective MAR Reviewed: Yes Vital Signs & Weight: Vital Signs (12 hours) Temp Pulse Resp BP Pulse Ox 03/20/17 07:48 98.2 F 79 16 179/96 H 95 Weight Admit Weight 237 lb Weight 237 lb I&O: 03/19/17 03/20/17 03/21/17 06:59 06:59 06:59 Intake Total 550 600 Output Total 625 725 Balance -75 -125 Result Diagrams: 03/20/17 08:06 03/20/17 08:06 Additional Labs: Accuchecks 03/20/17 03/19/17 03/19/17 06:41 20:14 16:28 POC Glucose 169 H 187 H 145 H 03/19/17 03/19/17 15:05 11:02 POC Glucose 154 H 180 H Phys Exam - Physical Examination Constitutional: NAD HEENT: PERRLA, moist MMs, sclera anicteric Neck: no JVD, supple Respiratory: no wheezing, no rales, no rhonchi Cardiovascular: RRR, no significant murmur, no rub Gastrointestinal: soft, non-tender, no distention, positive bowel sounds Musculoskeletal: no edema, pulses present right leg with wound vac+ Neurological: non-focal, normal sensation Lymphatic: no nodes Psychiatric: normal affect Skin: no rash, normal turgor Dx/Plan (1) Acute kidney failure Status: Resolved (2) Cellulitis of right leg Code(s): L03.115 - CELLULITIS OF RIGHT LOWER LIMB Status: Acute Comment: with necrotic ulcer, s/p I & d (3) Hypokalemia Code(s): E87.6 - HYPOKALEMIA Status: Acute (4) Sepsis with acute organ dysfunction Code(s): A41.9 - SEPSIS, UNSPECIFIED ORGANISM; R65.20 - SEVERE SEPSIS WITHOUT SEPTIC SHOCK Status: Acute (5) Ulcer of right lower leg Code(s): L97.919 - NON-PRS CHRONIC ULC UNSP PRT OF R LOW LEG W UNSP SEVERITY Status: Acute (6) Anemia, normocytic normochromic Code(s): D64.9 - ANEMIA, UNSPECIFIED Status: Chronic (7) Chronic systolic heart failure Code(s): I50.22 - CHRONIC SYSTOLIC (CONGESTIVE) HEART FAILURE Status: Chronic (8) Diabetes type 2, controlled Code(s): E11.9 - TYPE 2 DIABETES MELLITUS WITHOUT COMPLICATIONS Status: Chronic (9) Dyslipidemia Code(s): E78.5 - HYPERLIPIDEMIA, UNSPECIFIED Status: Chronic (10) Hypertension Code(s): I10 - ESSENTIAL (PRIMARY) HYPERTENSION Status: Chronic (11) Morbid obesity with BMI of 40.0-44.9, adult Code(s): E66.01 - MORBID (SEVERE) OBESITY DUE TO EXCESS CALORIES; Z68.41 - BODY MASS INDEX (BMI) 40.0-44.9, ADULT Status: Chronic - Plan cont current plan of 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 Review of Systems - Review of Systems ENT: negative: Ear Pain, Ear Discharge, Nose Pain, Nose Discharge, Nose Congestion, Mouth Pain, Mouth Swelling, Throat Pain, Throat Swelling, Other Respiratory: negative: Cough, Dry, Shortness of Breath, Hemoptysis, SOB with Excertion, Pleuritic Pain, Sputum, Wheezing Cardiovascular: negative: chest pain, palpitations, orthopnea, paroxysmal nocturnal dyspnea, edema, light headedness, other Gastrointestinal: negative: Nausea, Vomiting, Abdominal Pain, Diarrhea, Constipation, Melena, Hematochezia, Other Genitourinary: negative: Dysuria, Frequency, Incontinence, Hematuria, Retention , Other Musculoskeletal: negative: Neck Pain, Shoulder Pain, Arm Pain, Back Pain, Hand Pain, Leg Pain, Foot Pain, Other - Medications/Allergies Allergies/Adverse Reactions: Allergies Allergy/AdvReac Type Severity Reaction Status Date / Time No Allergy Information Allergy Verified 01/12/14 23:25 Available Medications: Current Medications Acetaminophen (Tylenol) 1,000 mg PO Q6H PRN PRN Reason: Moderate to Severe Pain (6-10) Last Admin: 03/19/17 18:00 Dose: 1,000 mg Hydrocodone Bitart/Acetaminophen ([place] 5/325) 1 tab PO Q4H PRN PRN Reason: Moderate Pain (4-6) Last Admin: 03/20/17 09:08 Dose: 1 tab Al Hydroxide/Mg Hydroxide (Maalox) 30 ml PO Q6H PRN PRN Reason: Heartburn or Indigestion Aspirin (Ecotrin) 325 mg PO DAILY [facility] Last Admin: 03/20/17 08:50 Dose: 325 mg Benzonatate (Tessalon) 100 mg PO Q4H PRN PRN Reason: Cough Last Admin: 03/20/17 04:55 Dose: 100 mg Bisacodyl (Dulcolax) 10 mg PO DAILYPRN PRN PRN Reason: Constipation Calcium Carbonate (Tums) 1,000 mg PO Q4H PRN PRN Reason: Heartburn or Indigestion Carvedilol (Coreg) 25 mg PO BID-[facility] Last Admin: 03/20/17 08:50 Dose: 25 mg Clonidine (Catapres) 0.1 mg PO Q4H PRN PRN Reason: Systolic BP > 160 Dextrose/Water (Dextrose 50%) 25 gm SLOW IVP PRN PRN PRN Reason: Hypoglycemia Enoxaparin Sodium (Lovenox) 40 mg SC 0900 [facility] Last Admin: 03/20/17 08:51 Dose: Not Given Famotidine (Pepcid) 20 mg PO BID [facility] Last Admin: 03/20/17 08:50 Dose: 20 mg Fenofibrate (Tricor) 145 mg PO DAILY [facility] Last Admin: 03/20/17 08:50 Dose: 145 mg Folic Acid (Folvite) 1 mg PO DAILY [facility] Last Admin: 03/20/17 08:50 Dose: 1 mg Glucagon (Glucagon) 1 mg IM PRN PRN PRN Reason: Hypoglycemia Guaifenesin (Robitussin Sf) 200 mg PO Q4H PRN PRN Reason: Cough Hydralazine HCl (Apresoline) 10 mg SLOW IVP Q4H PRN PRN Reason: Systolic BP > 170 Dextrose/Water (D5w) 1,000 mls @ 0 mls/hr IV .Q0M PRN; As Directed PRN Reason: Hypoglycemia Meropenem 1 gm/ Sterile Water 20 mls @ 240 mls/hr SLOW IVP Q8HR [facility] PRN Reason: As Directed Last Admin: 03/20/17 06:21 Dose: 20 mls Vancomycin HCl 1.75 gm/ Sodium (Chloride) 500 mls @ 250 mls/hr IVPB Q24HR@1500 [facility] Last Admin: 12/31/17 15:05 Dose: 500 mls Insulin Human Isoph/Insulin Regular (Humulin 70/30) 10 units SC BID-[facility] Last Admin: 03/20/17 08:51 Dose: 10 unit Insulin Human Lispro (Humalog) 0 units SC .AGGRESSIVE SLIDING PRN PRN Reason: Aggressive Correctional Scale Last Admin: 03/18/17 11:03 Dose: 6 unit Insulin Human Lispro (Humalog) 0 units SC .BEDTIME SLIDING SC PRN PRN Reason: Bedtime Correctional Scale Loratadine (Claritin) 10 mg PO DAILYPRN PRN PRN Reason: Sinus Symptoms Lorazepam (Ativan) 1 mg PO Q4H PRN PRN Reason: Anxiety/Agitation [facility] Last Admin: 03/20/17 08:50 Dose: 500 mg Miscellaneous Medication (Pharmacy To Dose) 1 each IVPB PRN PRN PRN Reason: Pharmacy to dose Multivitamins (Theragran) 1 tab PO DAILY [facility] Last Admin: 03/20/17 08:50 Dose: 1 tab Nitroglycerin (Nitrostat) 0.4 mg SL Q5MIN PRN PRN Reason: Chest Pain Ondansetron HCl (Zofran) 4 mg IVP Q6H PRN PRN Reason: Nausea/Vomiting Senna (Senokot) 2 tab PO HSPRN PRN PRN Reason: Constipation Simvastatin (Zocor) 40 mg PO HS [facility] Last Admin: 03/19/17 21:45 Dose: 40 mg Thiamine HCl (Thiamine) 100 mg PO DAILY [facility] Last Admin: 03/20/17 08:50 Dose: 100 mg Tramadol HCl (Ultram) 50 mg PO Q6H PRN PRN Reason: PAIN 1ST LINE Tramadol HCl (Ultram) 100 mg PO Q6H PRN PRN Reason: Pain 2ND LINE Last Admin: 03/16/17 04:52 Dose: 100 mg
[2017-03-20 14:33] LABS: Vancomycin, Trough 11.6 ug/mL
[2017-03-20] MEDS ORDERED: Vancomycin HCl 1.25 GM in Sodium Chloride 0.9% 250 ML 250 ML IVPB SCH (16:00)
[2017-03-20] MEDS: Vancomycin HCl 1.75 GM in Sodium Chloride 0.9% 500 ML IVPB SCH (16:01)
[2017-03-20] MEDS: Simvastatin 40 MG TAB PO SCH (21:21)
[2017-03-20 22:59] VITALS: BP 170/94; TEMP 97.9
--- NOTE | 2017-03-21 11:32 | DS ---
PRIMARY CARE PHYSICIAN: Miriam Villafana D.O. DATE OF ADMISSION: 03/13/2017 DATE OF : 03/20/2017 TIME OF : 22:36 PRIMARY CAUSE OF : 1. Acute necrotizing fasciitis. 2. Sepsis with acute organ dysfunction. 3. Acute kidney failure. CONTRIBUTING DIAGNOSES: Chronic systolic heart failure, diabetes type 2, morbid obesity with body ma ss index 40, normocytic anemia. PRIMARY PROCEDURE/OPERATION: Incision and debridement for necrotizing fasciitis by Dr. Galeano. RADIOLOGICAL INVESTIGATION: Foot and tibia fibula x-ray. SIGNIFICANT LABORATORY DATA: Hemoglobin 11.4, creatinine 0.82. Urinalysis normal DISCHARGE DISPOSITION: The patient . HOSPITAL COURSE: A 57-year-old male with above mentioned medical problems who was admitted by Dr. Elvie Tapia. The patient was having right lower extremity ulceration and cellulitis with necrotizing picture. Patient's right lower extremity smelled foul. The patient was started on broad spectrum an tibiotic therapy with vancomycin and Zosyn. Subsequently, antibiotic changed to meropenem based on c ulture and sensitivity result. Ultrasound of lower extremity was negative for any DVT. This patient did require debridement by Dr. Galeano. He was also meeting sepsis with acute organ dysfunction. He does have a history of cardiac arrest in past and this patient has out of hospital DNR form in his [facility]. Last night around 10 p.m., the patient was found unresponsive. Duration of unresponsive was not know n. Patient initially started on CPR, but as patient was DNR, that is why CPR was discontinued. Ynes ent was in asystole and he was unresponsive. Exact cause of most likely cardiac event or PE, b ut he is already on DVT prophylaxis. The patient was evaluated by Dr. Mederos, ER physician and on c all doctor, Dr. Guan was notified and was pronounced at 2236. During that time, I was not pr esent at bedside. Based on above-mentioned cause of is during this admission patient has prese nted with.
== END 2017-03-20 22:36 | disposition expired | DRG 853 ==
LOC: ERS 12:41 → T4-A 14:58
PROVIDERS: ADMIT Internal Medicine; ATTEND Internal Medicine
PROC: 0JBN0ZZ Excision of Right Lower Leg Subcutaneous Tissue and Fascia, Open Approach (ICD-10-PCS; principal; 2017-03-15)
DX: A41.9 Sepsis, unspecified organism (principal); M72.6 Necrotizing fasciitis; N17.9 Acute kidney failure, unspecified; E11.622 Type 2 diabetes mellitus with other skin ulcer; E66.01 Morbid (severe) obesity due to excess calories; I08.1 Rheumatic disorders of both mitral and tricuspid valves; I50.22 Chronic systolic (congestive) heart failure; L03.115 Cellulitis of right lower limb; L97.811 Non-pressure chronic ulcer of other part of right lower leg limited to breakdown of skin; Z68.41 Body mass index [BMI] 40.0-44.9, adult; I11.0 Hypertensive heart disease with heart failure; D64.9 Anemia, unspecified; R65.20 Severe sepsis without septic shock; E78.5 Hyperlipidemia, unspecified; F10.21 Alcohol dependence, in remission; Z79.84 Long term (current) use of oral hypoglycemic drugs; Z79.82 Long term (current) use of aspirin; Z66 Do not resuscitate; I46.9 Cardiac arrest, cause unspecified; I25.2 Old myocardial infarction; E87.6 Hypokalemia; K21.9 Gastro-esophageal reflux disease without esophagitis
CPT/HCPCS: 36415; 36416; 80048; 80053; 80202; 81003; 83036; 83605; 83735; 85025; 86140; 87040; 87070; 87077; 87186; 87205; 92950; 93923; 96365; 96375; A4216; G8978-GP-CJ; G8979-GP-CI; G8987-GO-CK; G8988-GO-CJ; J1650; J2001; J2185; J2250; J2405; J2543; J2704; J3010; J3370; J7050